=== PATIENT | male | born 1955 | race Caucasian/White ===

== ENCOUNTER → 2017-05-25 | Outpatient (CLI) | payer OTHER ==
[~2017-05-25] VITALS: Ht 190.5 cm; Wt 102.1 kg
[~2017-05-25] MED LIST: ALEVE220 MG PO
--- NOTE | ~2017-05-25 | HPC ---
[facility] [address] [place] [address] PAIN MANAGEMENT CONSULTATION Name: MELONYJOHN Nayla [facility] [id number] Admission: 05/25/17 Attend Phys: Michael Saldivar DO Discharge: Date of : 57 Report #: [id number] THIS REPORT FOR: //name// CC: LEOBARDO physician/PCP Michael Saldivar DATE OF SERVICE: 05/25/2017 CHIEF COMPLAINT: Neck pain, left upper extremity pain and paresthesias. HISTORY OF PRESENT ILLNESS: As you know, the patient is a very pleasant 61-year-old male who has been referred to our service for evaluation for cervical radiculopathy. The patient indicates his pain began in 2012, initially as axial cervical spine pain due to some facet changes in the lower cervical region. The patient has been treated conservatively since that time. He has had a history of periodic neck injuries over his lifetime, but no specific injury that led to symptom development. He indicates his pain has been exacerbated by increasing activity of late. He denies specific injury or trauma that may have led to the numbness and tingling radiating from the left neck into the left upper extremity all the way down to the thumb, first and second digits on the left side. The patient indicates pain at a level 7/10, daily average at 7/10, worst pain has been is 9/10. He describes the pain as constant, burning, shooting, sharp and stabbing. He indicates pain is exacerbated with activities and moving his neck; improves with ice and cold compresses. He has been referred to our service to discuss treatment options for what appears to be cervical radiculopathy involving the C6 dermatome. PAST MEDICAL HISTORY: None. PAST SURGICAL HISTORY: Knee surgery. SOCIAL HISTORY: The patient denies tobacco, IV or illicit drug use. Admits to approximately 4 alcoholic beverages per week. He is self-employed . He is working, not receiving workmen's compensation nor is he trying to obtain disability benefits. He is unaccompanied at today's visit. He is not in litigation in regards to pain. REVIEW OF SYSTEMS: Positive for headaches, hearing loss or tinnitus, frequent and recurrent intermittent dizzy spells, numbness and tingling sensations involving neck all the way into the left upper extremity and head injuries. All other review of systems negative per 12-point review of systems other than those listed in history of present illness. Pain impact score 46/70 indicating [id number] interference of daily activities [place] [address] PAIN MANAGEMENT CONSULTATION Name: JOHN TY Room #: REG CLI [facility].#: [id number] Admission: 05/25/17 Attend Phys: Michael Saldivar DO Discharge: Date of : 57 Report #: [id number] ALLERGIES: No known drug allergies. CURRENT MEDICATIONS: Naproxen sodium 220 mg 3 times a day. IMAGING: No new imaging available. PHYSICAL EXAMINATION: VITAL SIGNS: Blood pressure 138/97, pulse is 70, respiratory rate 16, unlabored. The patient is 100% on room air, height 6 feet 3 inches tall, weight 225 pounds, BMI calculated at 28.1. GENERAL: Well-developed, well-nourished, well-hydrated 61-year-old male appearing his stated age, placing current pain score at 6/10. HEENT: Normocephalic, atraumatic. Pupils equal, round, reactive to light. Extraocular muscles are intact. Sclerae nonicteric without injection. NEUROLOGIC: Cranial nerves 2 through 12 grossly intact. Speech is fluent. The patient deemed a good historian. LUNGS: Clear. No wheeze, rhonchi or rales. CARDIOVASCULAR: Regular. No appreciable gallop or rub. ABDOMEN: Soft, nontender, nondistended, normal active bowel sounds. EXTREMITIES: Show no clubbing, no cyanosis, no edema. MUSCULOSKELETAL: The patient does have some palpatory tenderness over the paraspinal musculature of cervical spine, left greater than right. Upper extremity strength is equal and symmetrical 5/5. He is intact from C5 through T1 dermatomes to light touch. Deep tendon reflexes, biceps, brachioradialis and triceps equal and symmetrical. Spurlings test positive left, negative right. There is restricted range of motion with cervical rotation to the left when compared to the right. Pain is generated with motion. Lateral flexion is also mildly limited to the left when compared to the right due to pain generation. ASSESSMENT: 1. Cervical radiculopathy. 2. Cervical spondylosis with radicular symptoms. 3. Chronic intractable pain. PLAN: 1. Based on today's physical exam, history the patient has provided, the description the patient uses in regards to pain as well as the location of symptoms and provoking factors, likely source of the patient's pain is a cervical radiculopathy. The dermatomal distribution of the cervical radicular pain appears to be on the C6 dermatome involving the upper extremity with radiation to the thumb, first digit and medial portion of the second digit on the left hand. The patient and I discussed treatment options for cervical radiculopathy. These would include the following treatment options. We have discussed physical therapy, stretching exercises and traction techniques. These have been trialled in the past and the patient indicates the physical therapy trial, not only traction techniques, but dry needling techniques and the use of [facility] [address] [place] [address] PAIN MANAGEMENT CONSULTATION Name: JOHN TY Nayla Room #: REG [facility].#: [id number] Admission: 05/25/17 Attend Phys: Michael Saldivar DO Discharge: Date of : 56 Report #: [id number] PENS (percutaneous electrical needle stimulation), all of which cause no improvement in pain except for transiently. We discussed medication management with a neuropathic pain medication in the form of Neurontin or Lyrica, amitriptyline or nortriptyline. We discussed cervical epidural injections under fluoroscopic guidance for which the patient was referred to our service and surgical options. After reviewing risks and benefits of all the proposed treatment options, the patient chose to begin with cervical epidural injection as he has noted failure of more conservative treatment such as physical therapy, traction techniques and PENS unit treatment. The patient was advised that third [employer] party payer restrictions require the authorization be obtained before we could have the patient undergo a cervical epidural injection. Authorization should take anywhere from 4-7 working days. We will begin the process immediately and contact the patient once this is completed. Once we have received the authorization, we will have the patient return to undergo the first in a series of cervical epidural injections. 2. I have provided the patient with samples of Lyrica today 50 mg dose, he will begin 1 tab p.o. at bedtime about an hour before bedtime tonight, he will continue for 3 nights, then escalate to 2 tabs one hour before bedtime or a total of 100 mg. The patient was advised if he is experiencing side effects of this medication including somnolence, decreased mental acuity, disorientation, confusion, discontinue the use of medication. 3. We will see the patient back in followup visit once we have achieved authorization for the patient to undergo epidural injection under fluoroscopic guidance. 4. We wish to thank the referring team for the opportunity to see this patient in consultation. We will keep you apprised of his response to treatment as we address his cervical radicular symptoms. Again, we wish to thank you for the opportunity to see this patient in consultation. <ELECTRONICALLY SIGNED> By: Michael Saldivar DO 05/27/17 [id number] Michael Saldivar DO /nt
[2017-05-25 10:08] VITALS: BP 138/97
== END | disposition home or self-care (01) ==
LOC: PAIN 09:33
DX: M54.12 Radiculopathy, cervical region (principal); M47.812 Spondylosis without myelopathy or radiculopathy, cervical region; G89.29 Other chronic pain

== ENCOUNTER → 2017-08-10 | Outpatient (CLI) | payer OTHER ==
[~2017-08-10] VITALS: Ht 160 cm; Wt 103.4 kg
[~2017-08-10] MED LIST changes: +TRAMADOL 50 MG50 MG PO
--- NOTE | ~2017-08-10 | HPC ---
[facility] [place] [address] [address] PAIN MANAGEMENT CONSULTATION Name: JOHN TY Room #: REG [facility] [id number] Admission: 08/10/17 Attend Phys: Michael Saldivar DO Discharge: Date of : 57 Report #: [id number] THIS REPORT FOR: //name// CC: LEOBARDO physician/PCP Michael Saldivar DATE OF SERVICE: 08/10/2017 DATE OF SERVICE: 08/10/2017 CHIEF COMPLAINT: Neck pain, left upper extremity pain and paresthesias. HISTORY OF PRESENT ILLNESS: As you know, the patient is a 61-year-old male, who was referred to our service for evaluation for cervical radiculopathy. The patient indicates pain began 2012, initiated with axial cervical spine pain, but then progress towards the left upper extremity with paresthesias. He was seen in our clinic per the request of his primary care physician on 05/25/2017, diagnosed with cervical radiculopathy, cervical spondylosis with radicular symptoms leading to chronic intractable pain. At that visit, we discussed multiple treatment options, requested possible cervical epidural injection and started the patient on Lyrica. He has been lost followup visit, but returns today requesting possible changes in medication therapy. He is noting side effects with the Lyrica and wishes possible changes in this therapy. He is also requesting possible addition of a pain medication. He indicates that he is receiving strange dreams, extreme fatigue during the day with the Lyrica though his pain is well controlled. He returns to make adjustments in therapy if at all possible. ALLERGIES: No known drug allergies. CURRENT MEDICATIONS: Naproxen sodium 220 mg 3 times a day, Lyrica 150 mg at night. SOCIAL HISTORY: The patient denies tobacco, IV or illicit drug use. Admits to approximately 4 alcoholic beverages per week. Self employed, unaccompanied today. IMAGING: No new imaging available. PHYSICAL EXAMINATION: VITAL SIGNS: Blood pressure 136/80, pulse 70, respiratory rate 16, unlabored, the patient 99% on room air, height 5 feet 3 inches tall, weight 228 pounds, BMI calculated ____. GENERAL: Well developed, well nourished, well-hydrated 61-year-old male appearing his stated age, placing current pain score at 5/10. HEENT: Normocephalic, atraumatic. Pupils equal, round, [place] [address] PAIN MANAGEMENT CONSULTATION Name: JOHN TY Room #: REG CLI [facility]#: [id number] Admission: 08/10/17 Attend Phys: Michael Saldivar DO Discharge: Date of : 57 Report #: [id number] EXTREMITIES: Show no clubbing, no cyanosis, no edema. MUSCULOSKELETAL: Upper extremity strength equal and symmetrical 5/5, intact to light touch from C5-T1 dermatomes. Deep tendinous reflexes equal and symmetrical biceps, brachialis and triceps. Spurling's positive left. ASSESSMENT: 1. Cervical radiculopathy. 2. Cervical spondylosis with radicular symptoms. 3. Chronic intractable pain. PLAN: 1. The patient returns today in followup visit indicating good efficacy with Lyrica, unfortunately he is experiencing strange dreams and extreme fatigue during the daytime hours despite the fact that is controlling his pain well. He has requested possible change in medication therapy in hopes of improving pain. We suggest the possibility of trialing Gralise in sample form. He will start with 1 tab at night. Continue the titration as directed until he reaches an efficacious level. He is to watch for side effects such as somnolence, decreased mental acuity, disorientation and confusion while taking the medication. If he notes any side effects, contact our clinic. We will await the results of the trial of Gralise to determine the level of medication necessary. If he is able to tolerate the medication and is noting good efficacy, he will contact our clinic, we will provide a full prescription of this medication to his local pharmacy for continued therapy for neuropathic pain secondary to cervical radiculopathy. 2. The patient was provided a prescription of tramadol 50 mg dose 1 tab p.o. every 6 hours p.r.n. for pain. I have given the patient #90 tablets, advised the patient only to take the medication as directed, not to take the medication prophylactically. 3. We will see the patient back in followup visit in 30 days. We will just determine at that time if we need to make any other changes in therapy. By: [id number] Michael Saldivar DO /nt
[2017-08-10 09:27] VITALS: BP 136/80
== END | disposition home or self-care (01) ==
LOC: PAIN 06:57
DX: M47.22 Other spondylosis with radiculopathy, cervical region (principal); G89.29 Other chronic pain

== ENCOUNTER → 2017-11-15 | Outpatient (CLI) | payer OTHER ==
[~2017-11-15] VITALS: Ht 193 cm; Wt 104.7 kg
[~2017-11-15] MED LIST changes: +GRALISE600 MG PO; +NAPROSYN500 MG PO; +VIAGRA100 MG PO
--- NOTE | ~2017-11-15 | HPC ---
[facility] [address] [address] PAIN MANAGEMENT CONSULTATION Name: JOHN TY Room #: REG [facility] Lizett.#: [id number] Admission: 11/15/17 Attend Phys: Michael Saldivar DO Discharge: Date of : 57 Report #: [id number] THIS REPORT FOR: //name// CC: LEOBARDO physician/PCP Michael Saldivar DATE OF SERVICE: 11/15/2017 CHIEF COMPLAINT: Neck pain, left upper extremity pain with paresthesias. HISTORY OF PRESENT ILLNESS: As you know, the patient is a 62-year-old male who was referred to our service by his primary care physician for evaluation of his cervical radiculopathy. The patient was seen in consultation on 05/25/2017, diagnosed with cervical radiculopathy, cervical spondylosis with radicular symptoms leading to chronic intractable pain. He was then seen in followup visit on 08/10/2017 where we initiated medical therapy in hopes of improving pain. He has now completed physical therapy. He was sent for physical therapy and did nearly 2 months of PT. Despite the physical therapy, his pain continues. He does indicate some improvement in the numbness, burning, tingling and stabbing sensation he is experiencing in the left upper extremity. He is placing pain score 4-5/10, states that looking down cooking and using his left upper extremity exacerbate symptoms. He returns today in followup visit to discuss changes in medical therapy and to discuss further imaging studies. ALLERGIES: No known drug allergies. CURRENT MEDICATIONS: Naproxen 220 mg 3 tabs 3 times a day, Lyrica 150 mg at night. SOCIAL HISTORY: The patient denies tobacco, IV or illicit drug use. Admits to approximately 4 alcoholic beverages per week. He is self-employed, unaccompanied. IMAGING: No new imaging available. PHYSICAL EXAMINATION: VITAL SIGNS: Blood pressure 140/75, pulse 70, respiratory rate 14 and unlabored, the patient is 97% on room air. Height 6 feet 4 inches tall, weight 230.8 pounds, BMI calculated at 28.1. GENERAL: Well-developed, well-nourished, well-hydrated 62-year-old male who appears his stated age, placing current pain score 4-5/10. HEENT: Normocephalic, atraumatic. Pupils are equal, round, and reactive to light. Extraocular muscles are intact. Sclerae are nonicteric, without injection. EXTREMITIES: Show no clubbing, no cyanosis, no edema. MUSCULOSKELETAL: Upper extremity strength appears equal and symmetrical at 5/5. [place] [address] PAIN MANAGEMENT CONSULTATION Name: JOHN TY Room #: REG [facility]..#: [id number] Admission: 11/15/17 Attend Phys: Michael Saldivar DO Discharge: Date of : 57 Report #: [id number] He remains intact to light touch from C5 to T1 dermatomes. Deep tendon reflexes are symmetrical at biceps, brachioradialis and triceps. Spurling test is positive on left and negative on right. There is some palpatory tenderness over the paraspinal musculature of cervical spine, no trigger points. ASSESSMENT: 1. Cervical radiculopathy. 2. Cervical spondylosis with radiculopathy. 3. Chronic intractable pain. PLAN: 1. The patient returns today in followup visit indicating that he received some benefit with physical therapy. He has been doing physical therapy for nearly 2 months and he has been very consistent with the PT requests. He states that he has progressed some, but pain remains at a level about 4-5/10. He is very concerned about changes in his cervical region and has requested that we provide imaging studies so that we can further determine whether or not the patient would need surgical intervention or whether or not more conservative treatment such as cervical epidural injections may be beneficial. The patient was advised at one time that he was a surgical candidate, but chose not to undergo surgery at that time. He has been "just putting up with it." He returns today with pain improvement from his physical therapy and his conservative medical management, but is considering the potential surgical options as he has not seen significant improvement in symptoms with medications or physical therapy. 2. The patient will be sent for MRI of cervical spine without contrast, differential diagnosis of cervical radiculopathy. The patient has requested the imaging to be performed at one of the facilities that is covered through his insurance. I have provided him a prescription to undergo the procedure. I recommend the patient undergo the procedure as quickly as possible. We will review the findings once they are available and have the patient return to discuss options for treatment based on the pathology noted. 3. The patient has been provided a prescription for Gralise. He did have some issues with Lyrica. This caused depression and vivid dreams that he could not tolerate. We subsequently discontinued the medication as symptoms improved. We started the patient on immediate release gabapentin for which he noted good improvement in symptoms, but side effects of somnolence, decreased mental acuity, disorientation, confusion that he could not resolve. We then started the patient on Gralise as a trial. He did very well with the medication reaching 1800 mg at night. No side effects, good efficacy and he wishes to continue therapy. We have provided the patient with a prescription of Gralise 600 mg tablets 3 tabs p.o. at bedtime, #90 with refill. [facility] [place] [address] PAIN MANAGEMENT CONSULTATION Name: JOHN TY Room #: REG [facility]#: [id number] Admission: 11/15/17 Attend Phys: Michael Saldivar DO Discharge: Date of : 57 Report #: [id number] 4. We will see the patient back in followup visit once he has completed his MRI. We will review the findings and discuss more definitive treatment options. <ELECTRONICALLY SIGNED> By: Michael Saldivar DO 11/22/17 [id number] Michael Saldivar DO /nt
[2017-11-15 09:41] VITALS: BP 140/75
== END ==
LOC: PAIN 07:12
DX: M54.12 Radiculopathy, cervical region (principal); M47.892 Other spondylosis, cervical region; G89.29 Other chronic pain; Z72.89 Other problems related to lifestyle

== ENCOUNTER → 2018-02-08 | Outpatient (CLI) | payer OTHER ==
[~2018-02-08] VITALS: Ht 193 cm; Wt 102.5 kg
[~2018-02-08] MED LIST changes: -VIAGRA100 MG PO
--- NOTE | ~2018-02-08 | HPC ---
[facility] [place] [address] PAIN MANAGEMENT CONSULTATION Name: MELONYJOHN Nayla Room #: REG [facility].#: [id number] Admission: 02/08/18 Attend Phys: Michael Saldivar DO Discharge: Date of : 56 Report #: [id number] THIS REPORT FOR: //name// CC: LEOBARDO physician/PCP Michael Saldivar DATE OF SERVICE: 02/08/2018 CHIEF COMPLAINT: Neck pain, left upper extremity pain and paresthesias. HISTORY OF PRESENT ILLNESS: As you know, the patient is a 62-year-old male who returns today in followup visit, review MRI imaging. The patient indicates pain today at level of 5/10, states pain begins in the neck, radiates to the left shoulder and down the left arm all the way into the hand. He gets intermittent right-sided pain. He describes the pain as numbness, burning, tingling and sharp, exacerbated with walking, looking down, cooking, turning to his right side, repetitive motion. He indicates medications, cold compresses, bracing around the neck improves pain. He is placing pain score no greater than 5/10 today. He returns to discuss imaging and potential treatment options. ALLERGIES: No known drug allergies. CURRENT MEDICATIONS: Gabapentin 600 mg 3 tabs p.o. at bedtime, naproxen 220 mg once a day. SOCIAL HISTORY: The patient denies tobacco, IV or illicit drug use. Admits to 4 alcoholic beverages per week. He is self-employed. He is accompanied by his present in room today. IMAGING: MRI cervical spine obtained 01/25/2018 shows C2-C3 with facet and uncovertebral hypertrophy noted more on the right, central canal measuring 13 mm. C3-C4 shows disk narrowing, osteophyte complex, canal is measuring 11 mm. There is facet and uncovertebral hypertrophy, bilateral foraminal stenosis seen. C4-C5, central canal is reduced to 10 mm. There is more prominent right than left facet and uncovertebral hypertrophy, foraminal stenosis is also more on the right at this level. C5-C6 shows osteophyte and degenerative changes, diffuse annular disk bulge, central canal measures 11 mm. Facet and uncovertebral hypertrophy noted, mild bilateral neural foraminal stenosis. C6-C7, central canal measures 10 mm. There is disk space degeneration and endplate degeneration, more prominent on the right than the left. There is uncovertebral and facet hypertrophy, more prominent on the right than the left; bilateral foraminal stenosis, prominent on the right. C7-T1, no evidence of focal disk protrusion, sign of central canal and neural foraminal stenosis. PHYSICAL EXAMINATION: VITAL SIGNS: Blood pressure 108/73, pulse 70, respiratory rate 14, unlabored. [facility] [address] [place] [address] PAIN MANAGEMENT CONSULTATION Name: JOHN TY Room #: REG [facility].#: [id number] Admission: 02/08/18 Attend Phys: Michael Saldivar DO Discharge: Date of : 56 Report #: [id number] The patient is 100% on room air. Height 6 feet 4 inches tall, weight 226 pounds, BMI calculated 27.5. GENERAL: Well-developed, well-nourished, well-hydrated, 62-year-old male. He appears stated age. He is placing pain score today 5/10. HEENT: Normocephalic, atraumatic. Pupils equal, round, reactive to light. Extraocular muscles are intact. Sclerae nonicteric, without injection. EXTREMITIES: Show no clubbing, no cyanosis, no edema. MUSCULOSKELETAL: Upper extremity strength equal and symmetrical 5/5, intact to light touch from C5-T1 dermatomes. Deep tendon reflexes remain symmetrical at biceps, brachioradialis and triceps. Spurling's test positive on the left. ASSESSMENT: 1. Cervical radiculopathy. 2. Cervical spondylosis with radicular symptoms. 3. Mildly displaced cervical radicular disk. 4. Mild cervical canal stenosis. 5. Chronic intractable pain. PLAN: 1. The patient has returned today in followup visit where we have taken 21 minutes of time to review the patient's MRI and correlating to current distribution of pain. It does appear the patient is suffering from continued left radiculopathy with radiation from the neck all the way into the hand, though the findings on MRI are very benign. It does not require any surgical option in this patient's case and I am pleased that the findings on the MRI are such that we do not have to recommend surgical options. We discussed with the patient treatment options that would be beneficial for the findings on the imaging study and how they correlate to the patient's ongoing pain issues. The following was discussed. We discussed physical therapy, stretching exercises and traction techniques. This would be extremely beneficial. We recommend the patient initiate this therapy as quickly as possible. We also recommend continuation of neuropathic pain medications as he is noting good benefit with the Gralise at 1800 mg at night. Would recommend continuing this therapy. We also discussed interventional treatment such as cervical epidural injections if warranted. I am pleased to indicate today surgical options in this patient's case are not necessary. After this long discussion, the patient chose to continue with conservative treatment. 2. The patient was provided prescription of Gralise 600 mg dose 3 tabs p.o. at bedtime, I have given the patient #90 tablets, 2 refills, 3 months' worth of medication. 3. The patient was provided refill of prescription on his naproxen 500 mg dose 1 tab p.o. t.i.d., I have given the patient #90, two refills. 4. The patient will begin physical therapy with traction techniques. We have given the patient information about physical therapy options in his area, he will begin this as quickly as possible. 5. We will see the patient back in followup visit in 3 months. I am pleased to [address] [address] PAIN MANAGEMENT CONSULTATION Name: JOHN TY [id number] Admission: 02/08/18 Attend Phys: Michael Saldivar DO Discharge: Date of : 56 Report #: [id number] indicate to the patient today surgical options will not be necessary in this case. I am hopeful that the conservative treatment provided will be beneficial. <ELECTRONICALLY SIGNED> By: Michael Saldivar DO 02/14/18 0935 [id number] Michael Saldivar DO /nt
[2018-02-08 09:40] VITALS: BP 108/73
== END ==
LOC: PAIN 06:49
DX: M54.12 Radiculopathy, cervical region (principal); M47.892 Other spondylosis, cervical region; M48.02 Spinal stenosis, cervical region; G89.29 Other chronic pain

== ENCOUNTER → 2018-06-06 | Outpatient (CLI) | payer OTHER ==
--- NOTE | ~2018-06-06 | HPC ---
[facility] [address] [place] [address] PAIN MANAGEMENT CONSULTATION Name: JOHN TY Room #: REG [facility].#: [id number] Admission: 06/06/18 Attend Phys: Michael Saldivar DO Discharge: Date of : 56 Report #: [id number] THIS REPORT FOR: //name// CC: LEOBARDO physician/PCP Michael Saldivar DATE OF SERVICE: 06/06/2018 CHIEF COMPLAINT: Neck pain, left upper extremity pain and paresthesias. HISTORY OF PRESENT ILLNESS: As you know, the patient is a 62-year-old male who returns today in followup visit with a pain intensity anywhere from 0-5/10 depending on activity. The patient states his pain begins in his neck, radiates down his left arm all the way to his hand. He also has intermittent right shoulder pain that is only present when his left symptoms are most intense. He indicates his pain is sharp, knife-like, burning, numbness and tingling in sensation and exacerbated with positions of his neck and physical therapy. Medications tend to improve pain. He has been advised to return to our clinic to discuss the possibility of other treatment options. He is taking Gralise 1800 mg at night. He is reporting some side effects of somnolence, decrease in mental acuity, disorientation and confusion that it was noted with an escalation from the 7990-2375 mg dosing. He does note improvement in symptoms with the medication, but the side effects have become problematic. He returns to discuss other treatment options. ALLERGIES: No known drug allergies. CURRENT MEDICATIONS: Gralise 1800 mg p.o. at bedtime and naproxen 220 mg 3 times a day. SOCIAL HISTORY: The patient denies tobacco or IV or illicit drug use. Admits to at least 4 alcohol beverages per week. He is self-employed. He is accompanied by his , present in room today. IMAGING DATA: No new imaging available. PHYSICAL EXAMINATION: VITAL SIGNS: Blood pressure 110/82, pulse is 75 and respiratory rate 16 and unlabored. The patient is 100% on room air, height 6 feet 4 inches tall, weight 226 pounds and BMI calculated 27.5. GENERAL: Well-developed, well-nourished and well-hydrated 62-year-old male. He appears stated age, placing current pain score at 0-5/10 depending on activity. HEENT: Normocephalic and atraumatic. Pupils equal, round and reactive to light. EXTREMITIES: Show no clubbing, no cyanosis and no edema. MUSCULOSKELETAL: Upper extremity strength is symmetrical again today 03/04, [place] [address] PAIN MANAGEMENT CONSULTATION Name: JOHN TY Room #: REG [facility]..#: [id number] Admission: 06/06/18 Attend Phys: Michael Saldivar DO Discharge: Date of : 56 Report #: [id number] muscle bulk and tone equal and symmetrical in the upper extremities when comparing left upper extremity with right. Deep tendon reflexes are symmetrical at biceps, brachioradialis and triceps 2+/4. Spurling's test positive left, negative right. Cervical provocation testing including extension and lateral flexion to the left causes intensification of pain. ASSESSMENT: 1. Cervical radiculopathy. 2. Cervical spondylosis with radicular symptoms. 3. Mildly displaced cervical intervertebral disk with radiculopathy. 4. Mild cervical spinal stenosis. 5. Chronic intractable pain. PLAN: 1. The patient returns today in followup visit reporting pain anywhere from 0-5/10. He is considered his options and wishes to move forward with a possible cervical epidural injection. The patient was advised that third green party payer restrictions require the authorization be obtained. We will begin the authorization process immediately. Given the patient's attempts at conservative medical therapy, his continued physical therapy for which he is paying out of pocket to continue as well as his side effects of medications, I do recommend an epidural injection to determine if his symptoms might be improved. We will begin the authorization process immediately. We will contact the patient once this authorization has been completed and have him return to undergo cervical epidural injection under fluoroscopic guidance at the C7-T1 level to address the findings from his MRI. 2. We will continue the patient on his Gralise. We have advised the patient to reduce by 300 mg at night for the next week. We will then discuss the efficacy of the medication at that point and determine if he is receiving less side effects but continuing analgesic benefit. 3. The patient was provided description and naproxen 500 mg dose 1 tab p.o. t.i.d. I have given the patient #90 tablets, 2 refills. He is to take the naproxen in the morning around 2:00 in the afternoon and again in the evening hours. He is to watch for dyspepsia, worsening blood pressure and lower extremity edema. At present, the patient denies any side effects. 4. We will see the patient back in followup visit once we have achieved authorization for the patient to undergo cervical epidural injection under fluoroscopic guidance to address cervical radicular symptoms. <ELECTRONICALLY SIGNED> By: Michael Saldivar DO 06/07/18 1625 1603 2131 Michael Saldivar, /nt
== END ==
LOC: PAIN 11:46
DX: M47.812 Spondylosis without myelopathy or radiculopathy, cervical region (principal); M48.02 Spinal stenosis, cervical region; M50.121 Cervical disc disorder at C4-C5 level with radiculopathy; G89.4 Chronic pain syndrome; Z79.899 Other long term (current) drug therapy

== ENCOUNTER → 2018-06-13 | Outpatient (CLI) | payer OTHER ==
[~2018-06-13] VITALS: Ht 193 cm; Wt 102.5 kg
--- NOTE | ~2018-06-13 | HPC ---
[facility] [address] [address] PAIN MANAGEMENT CONSULTATION Name: MELONYJOHN Nayla Room #: REG [facility].#: [id number] Admission: 06/13/18 Attend Phys: Michael Saldivar DO Discharge: Date of : 56 Report #: [id number] THIS REPORT FOR: //name// CC: LEOBARDO physician/PCP Michael Saldivar DATE OF SERVICE: 06/13/2018 CHIEF COMPLAINT: Neck pain, left upper extremity pain and paresthesias. HISTORY OF PRESENT ILLNESS: As you know, the patient is a 62-year-old male who returns today in followup visit having received precertification to undergo an epidural injection under fluoroscopic guidance to address cervical radicular symptoms. The patient is placing his current pain score at around 5/10. He states that certain activities exacerbate symptoms, medications tend to improve pain. He returns to undergo the first in a series of cervical epidural injections to address cervical radicular pain. ALLERGIES: No known drug allergies. CURRENT MEDICATIONS: Gralise 1800 mg p.o. at bedtime, naproxen 220 mg 3 times a day. SOCIAL HISTORY: The patient denies tobacco, IV or illicit drug use. Admits to at least 4 alcohol beverages per week. He is self employed. He is accompanied by his who is present in room today. IMAGING: No new imaging available. PHYSICAL EXAMINATION: VITAL SIGNS: Blood pressure 121/98, pulse is 65, respiratory rate 16, unlabored. The patient is 98% on room air, height 6 feet 4 inches tall, weight 226 pounds, BMI calculated 27.5. GENERAL: Well-developed, well-nourished, well-hydrated 62-year-old male appearing his stated age. He is placing pain score at 5/10. HEENT: Normocephalic, atraumatic. Pupils are equal, round, reactive to light. Extraocular muscles are intact. EXTREMITIES: Show no clubbing, no cyanosis, no edema. MUSCULOSKELETAL: Upper extremity strength is symmetrical 5/5, intact to light touch from C5 through T1 dermatomes. Deep tendon reflexes are symmetrical at biceps, brachioradialis and triceps. Spurling's test positive left, negative right. ASSESSMENT: 1. Symptomatic lumbar radiculopathy. 2. Cervical spondylosis with radiculopathy. [address] [address] PAIN MANAGEMENT CONSULTATION Name: MELONYJOHN Room #: REG [facility].#: [id number] Admission: 06/13/18 Attend Phys: Michael Saldivar DO Discharge: Date of : 57 Report #: [id number] 3. Mildly displaced cervical intervertebral disk with radiculopathy. 4. Mild cervical spinal stenosis. 5. Chronic intractable pain. PLAN: 1. The patient returns today in followup visit having received precertification to undergo a cervical epidural injection under fluoroscopic guidance. The patient and I discussed the risks and the benefits of the procedure. These risks include but are not necessarily limited to bleeding, bruising, infection, worsening pain, no relief of pain, also risk of temporary or permanent muscle weakness, temporary or permanent nerve damage, possible paralysis and . The patient states understood and wished to proceed. 2. No medication changes made at today's visit. The patient will continue current medical therapy as previously prescribed. 3. We will see the patient back in followup visit in 31 days. At that time, review the efficacy of today's epidural injection and determine if next in the series of cervical epidural injections would be warranted. DESCRIPTION OF PROCEDURE: Cervical epidural steroid injection under fluoroscopic guidance. This is the first procedure of the first series that the patient is undergoing. After obtaining written consent, the patient was taken back to the fluoroscopy suite and placed in a prone position with several pillows under chest and forehead to decrease cervical lordosis. The skin overlying the cervical area was prepped and draped in an aseptic fashion. The cervical vertebral interspace was identified by AP fluoroscopy. The skin and subcutaneous tissue overlying the target site of injection was anesthetized using 3 mL of 1% lidocaine. A 20-gauge, 3-1/2 inch Tuohy needle was advanced under fluoroscopic guidance toward the epidural space using a midline approach. The epidural space was identified using a loss of resistance to air technique. After negative aspiration for heme or cerebrospinal fluid, a total of 1 mL of Omnipaque was injected. A cervical epidurogram was confirmed using AP and oblique fluoroscopy. After negative aspiration for heme or cerebrospinal fluid, 5 mL of a solution containing 2 mL 40 mg per mL, 80 mg total triamcinolone, 3 mL lidocaine 1% was injected in increments. Contrast spread was noted from posterior epidural space. The needle was then retracted approximately [facility] and the needle track was flushed with 1 mL of lidocaine. There were no apparent new sensory deficits in the upper extremities present following the procedure. A sterile bandage was placed over the injection site. The heart rate, pulse oximetry and blood pressure were continuously monitored after the procedure. There were no apparent complications. The patient tolerated the procedure well and was carefully escorted in the recovery room in [address] [address] PAIN MANAGEMENT CONSULTATION Name: JOHN YT Room #: REG [facility] [id number] Admission: 06/13/18 Attend Phys: Michael Saldivar DO Discharge: Date of : 57 Report #: [id number] stable condition. After meeting discharge criteria, the patient was discharged home. <ELECTRONICALLY SIGNED> By: Michael Saldivar DO 06/14/18 0838 1559 0038 Michael Saldivar DO /nt
[2018-06-13 13:07] VITALS: BP 121/98
== END | disposition home or self-care (01) ==
LOC: PAIN 07:06
DX: M50.10 Cervical disc disorder with radiculopathy, unspecified cervical region (principal); M47.22 Other spondylosis with radiculopathy, cervical region; M48.02 Spinal stenosis, cervical region; G89.29 Other chronic pain

== ENCOUNTER → 2018-10-25 | Outpatient (CLI) | payer OTHER ==
[~2018-10-25] VITALS: Ht 193 cm; Wt 106.1 kg
[~2018-10-25] MED LIST changes: +VIAGRA100 MG PO
--- NOTE | ~2018-10-25 | HPC ---
[facility] [address] [place] [address] PAIN MANAGEMENT CONSULTATION Name: SENIAHOLLYJOHN Nayla [facility] [id number] Admission: 10/25/18 Attend Phys: Michael Saldivar DO Discharge: Date of : 57 Report #: [id number] THIS REPORT FOR: //name// CC: Dr. ANEESH BOOTH physician/PCP Michael Saldivar DATE OF SERVICE: 10/25/2018 REFERRING PHYSICIAN: PCP. HISTORY OF PRESENT ILLNESS: As you know, the patient is a very pleasant 63-year-old male who returns today in followup visit with continued neck pain, left upper extremity pain with paresthesias. The patient reports good efficacy with previous cervical epidural injection reporting improvement lasting for months. He states in combination with his cervical epidural injections, he was taking Gralise with good effect. He began to reduce his use of Gralise and this led to increasing pain. He reinitiated his Gralise but did not see improvement in symptoms. He returns today in followup visit requesting to undergo a cervical epidural injection to address pain levels of 7/10, states pain is burning, numbness, tingling and soreness in sensation, exacerbated with certain activities, improves with medications and epidurals. ALLERGIES: No known drug allergies. CURRENT MEDICATIONS: Gralise 1200 mg once a day, naproxen 220 mg 6 times a day, Viagra 100 mg p.r.n. SOCIAL HISTORY: The patient denies tobacco, IV or illicit drug use. Admits to approximately 4 alcoholic beverages per week. He is employed. He is accompanied by his who is present in room today. IMAGING: No new imaging available. PHYSICAL EXAMINATION: VITAL SIGNS: Blood pressure 143/86, pulse 62, respiratory rate 16 and unlabored, the patient 99% on room air, height 6 feet 4 inches tall, weight 234 pounds, BMI calculated 28.5. GENERAL: Well-developed, well-nourished, well-hydrated 61-year-old male appearing stated age, placing current pain score at approximately 7/10. HEENT: Normocephalic, atraumatic. Pupils equal, round, reactive to light. Extraocular muscles are intact. Sclerae nonicteric without injection. NEUROLOGIC: Cranial nerves 2-12 grossly intact. Speech is fluent. EXTREMITIES: Show no clubbing, no cyanosis, no edema. MUSCULOSKELETAL: Upper extremity strength is symmetrical 5/5, muscle bulk and tone equal and symmetrical. Spurlings test is positive left, negative right. [facility] [address] [address] PAIN MANAGEMENT CONSULTATION Name: JOHN TY Room #: REG [facility]#: [id number] Admission: 10/25/18 Attend Phys: Michael Saldivar DO Discharge: Date of : 57 Report #: [id number] Active and passive range of motion of the right arm causes intensification of pain, no shoulder tenderness. ASSESSMENT: 1. Cervical radiculopathy. 2. Cervical spondylosis with radiculopathy. 3. Displacement of a cervical intervertebral disk with radiculopathy. 4. Mild cervical spinal stenosis. 5. Chronic intractable pain. PLAN: 1. The patient returns today in followup visit to undergo a cervical epidural injection under fluoroscopic guidance. The patient denies any specific injury or trauma that may have caused recurrence of symptoms. The patient did very well with previous cervical epidural injection on 06/13/2018, returning on 07/12/2018 reporting significant improvement in symptoms of greater than 65%. This in conjunction with Gralise has combined to provide good analgesic benefit until just recently. He returns today in followup visit to undergo cervical epidural injection under fluoroscopic guidance to address recurrence of cervical radiculopathy. We have been able to obtain authorization from his third green party payer today as part of their requirements and he is prepared to proceed. The patient was advised risks and benefits of a cervical epidural injection. These risks include but are not necessarily limited to bleeding, bruising, infection, worsening pain, no relief of pain, also risk of temporary or permanent muscle weakness, temporary or permanent nerve damage, possible paralysis, post-dural puncture headache and . The patient states understood and wished to proceed. 2. Recommend the patient restart his Gralise at 600 mg 2-3 tabs p.o. at bedtime. I have given the patient #90 tablets, 2 refills. The patient was advised to re-escalate his Gralise as he was noticing good efficacy with the medication. He was given a prescription with refills today for 3 months' worth of therapy. 3. The patient will continue on naproxen, but reducing dose to 500 mg 3 times a day. I have given the patient #90 tablets, 2 refills. The patient was advised to watch for any dyspepsia, worsening of blood pressure, lower extremity edema with its use. 4. We will see the patient back in followup visit on an as needed basis for possible next in the series of cervical epidural injections. Otherwise, we will see him back in 3 months for medication management. PROCEDURE NOTE: DESCRIPTION OF PROCEDURE: Cervical epidural steroid injection. This is the second procedure of the first series that the patient is undergoing. [address] [address] PAIN MANAGEMENT CONSULTATION Name: JOHN TY Room #: REG [facility]#: [id number] Admission: 10/25/18 Attend Phys: Michael Saldivar DO Discharge: Date of : 56 Report #: [id number] After obtaining written consent, the patient was taken back to the fluoroscopy suite and placed in a prone position with separate pillows under chest and forehead to decrease cervical lordosis. The skin overlying the cervical area was prepped and draped in an aseptic fashion. The C7-T1 vertebral interspace was identified by AP fluoroscopy. The skin and subcutaneous tissue overlying the target site of injection was anesthetized using 3 mL of 1% lidocaine. A 20 gauge, 3-1/2 inch Tuohy needle was advanced under fluoroscopic guidance toward the epidural space using a midline approach. The epidural space was identified using a loss of resistance to air technique. After negative aspiration for heme or cerebrospinal fluid, a total of 1 mL of Omnipaque was injected. A cervical epidurogram was confirmed using AP and oblique fluoroscopy. After negative aspiration for heme or cerebrospinal fluid, 5 mL of a solution containing 2 mL 40 mg per mL, 80 mg total triamcinolone, 3 mL of lidocaine 1% was injected in increments. Contrast spread was noted from posterior epidural space. The needle was then retracted approximately nursing home and the needle track was flushed with 1 mL of 1% lidocaine. There were no apparent new sensory deficits in the upper extremities present following the procedure. A sterile bandage was placed over the injection site. The heart rate, pulse oximetry and blood pressure were continuously monitored after the procedure. There were no apparent complications. The patient tolerated the procedure well and was carefully escorted in the recovery room in stable condition. After meeting discharge criteria, the patient was discharged home. By: 1628 0029 Michael Saldivar DO /nt
[2018-10-25 09:11] VITALS: BP 143/86
== END | disposition home or self-care (01) ==
LOC: PAIN 08:15
DX: M47.22 Other spondylosis with radiculopathy, cervical region (principal); M50.10 Cervical disc disorder with radiculopathy, unspecified cervical region; M48.02 Spinal stenosis, cervical region; G89.29 Other chronic pain; Z79.899 Other long term (current) drug therapy

== ENCOUNTER → 2019-01-17 | Outpatient (CLI) | payer OTHER ==
[~2019-01-17] VITALS: Ht 193 cm; Wt 104.3 kg
[~2019-01-17] MED LIST changes: +NABUMETONE 500500 M1 PO
--- NOTE | ~2019-01-17 | HPC ---
[facility] [address] [place] [address] PAIN MANAGEMENT CONSULTATION Name: JOHN TY Nayla [id number] Admission: 01/17/19 ������������������ Attend Phys: Michael Saldivar DO Discharge: ������������������ Date of : 57 Report #: [id number] THIS REPORT FOR: //name// CC: [facility] physician/PCP Michael Saldivar DATE OF SERVICE: 01/17/2019 CHIEF COMPLAINT: Neck pain, bilateral upper extremity pain and paresthesias. HISTORY OF PRESENT ILLNESS: As you know, the patient is a 63-year-old male followed by [facility] for cervical radiculopathy. As you are aware, the patient has done very well with medication management. We have trialled epidural injections with the patient in the past with variable improvement in symptoms. We have adjusted his medications and he appears to be doing well with this therapy. He returns today requesting refill of his medications. He is denying any side effects to their use. He feels that they work well for pain control and wishes to continue this treatment option. He is denying side effects of somnolence, decreased mental acuity, disorientation or confusion with the use of the therapy. He returns today with pain score of 5/10. He denies new injury, new trauma or any changes in medical history since our last visit. ALLERGIES: No known drug allergies. CURRENT MEDICATIONS: Gralise 1800 mg p.o. at bedtime, naproxen 500 mg t.i.d. p.r.n. SOCIAL HISTORY: The patient denies tobacco, IV or illicit drug use. Admits to approximately 4 alcoholic beverages per week. He is employed, he is working, not receiving workmen's compensation, unaccompanied today. IMAGING: No new imaging available. PHYSICAL EXAMINATION: VITAL SIGNS: Blood pressure 137/84, pulse 74, respiratory rate 16 and unlabored. The patient is 100% on room air, height 6 feet 4 inches tall, weight 230 pounds, BMI calculated at 28.0. GENERAL: Well-developed, well-nourished, well-hydrated 63-year-old male appearing his stated age, placing a pain score today 5/10. HEENT: Normocephalic, atraumatic. Pupils are equal, round, and reactive to light. EXTREMITIES: Show no clubbing, no cyanosis, and no edema. MUSCULOSKELETAL: Upper extremity strength is symmetrical at 5/5, muscle bulk and tone equal and symmetrical in comparing left upper extremity to right. Spurling test positive left, negative right. Deep tendon reflexes are symmetrical at biceps, brachialis and triceps. [address] [address] PAIN MANAGEMENT CONSULTATION Name: MELONYJOHN Nayla Room #: REG CL [facility].#: [id number] Admission: 01/17/19 ������������������ Attend Phys: Michael Saldivar DO Discharge: ������������������ Date of : 57 Report #: [id number] ASSESSMENT: 1. Cervical radiculopathy. 2. Cervical spondylosis with radiculopathy. 3. Displacement of cervical intervertebral disk with radiculopathy. 4. Cervical spinal stenosis. 5. Chronic intractable pain. PLAN: 1. The patient returns today in followup visit for continuation of medication therapy. He feels the Gralise at 1800 mg per day is working well for pain control. He is experiencing mild somnolence in the morning hours, lasting for approximately 1-2 hours. He feels the medication benefits far outweighed this minimal side effect and wishes to continue the medication. He has requested refills to be provided today. 2. The patient was provided a prescription of Gralise 600 mg tablets. He is to take 3 tabs p.o. at bedtime, #90, 2 refills, 3 months' worth of medication. 3. The patient will be transitioned from naproxen over to nabumetone. We will make this adjustment in providing better analgesic benefit. I have started the patient on nabumetone 500 mg dose 1 tab p.o. t.i.d., #90, with 2 refills. The patient will watch for dyspepsia, worsening of blood pressure, lower extremity edema with its use. If he notes any side effects, discontinue immediately and call for further instructions. 4. We will see the patient back in followup visit on an as needed basis for possible next in the series of cervical epidural injections. Otherwise, we will see him back in 3 months for medication therapy. ��������������������������������������������� ���������������������������������������� By: ��������������������������������������������� 1430 [id number] Mihcael Saldivar DO /nt
[2019-01-17 09:15] VITALS: BP 137/84
--- NOTE | 2019-01-17 09:54 | NUR ---
Pain Clinic Assessment: 1. History of Osteoarthritis: neck History of Rheumatoid Arthritis: none 2. Height: 6 ft. 4 in. 193.0 cm. Weight: 230.0 lb. oz. 104.328 kg. Patient's BMI: 28.0 3. Vital Signs: BP: 137/84 Pulse: 74 Resp: 16 Temp: 02 Sat: 100 ECG Mon: 4. Pain Intensity: 5 5. Fall Risk: Dizziness: Y Needs help standing or walking: N Fallen in the last 3 months: Y Fall risk comments: having vertigo and seeing pt 6. Patient on Blood Thinner: None 7. History of Hypertension: N 8. Opioid Therapy greater than 6 weeks: N Opiate Contract Signed: 9. Risk Assessment Tool Provided: MODERATE RISK 03/06 10. Functional Assessment Tool: 11. Recreational Drug Use: Never Drug Type: Tobacco Use: Never Smoker Tobacco Type: Amount or Packs/day: How Many Years: Alcohol Use: Yes Frequency: Quant:
== END ==
LOC: PAIN 07:01
DX: M47.22 Other spondylosis with radiculopathy, cervical region (principal); M48.02 Spinal stenosis, cervical region; M50.10 Cervical disc disorder with radiculopathy, unspecified cervical region; G89.4 Chronic pain syndrome

== ENCOUNTER → 2019-05-15 | Outpatient (CLI) | payer OTHER ==
[~2019-05-15] VITALS: Ht 193 cm; Wt 101.2 kg
[2019-05-15 09:46] VITALS: BP 127/73
--- NOTE | 2019-05-15 09:47 | NUR ---
Pain Clinic Assessment: 1. History of Osteoarthritis: neck History of Rheumatoid Arthritis: none 2. Height: 6 ft. 4 in. 193.0 cm. Weight: 223.0 lb. oz. 101.152 kg. Patient's BMI: 27.2 3. Vital Signs: BP: 127/73 Pulse: 72 Resp: 16 Temp: 02 Sat: 98 ECG Mon: 4. Pain Intensity: 3 5. Fall Risk: Dizziness: N Needs help standing or walking: N Fallen in the last 3 months: N Fall risk comments: having vertigo and seeing pt 6. Patient on Blood Thinner: None 7. History of Hypertension: N 8. Opioid Therapy greater than 6 weeks: N Opiate Contract Signed: 9. Risk Assessment Tool Provided: MODERATE RISK 03/06 10. Functional Assessment Tool: 11. Recreational Drug Use: Never Drug Type: Tobacco Use: Never Smoker Tobacco Type: Amount or Packs/day: How Many Years: Alcohol Use: Yes Frequency: Quant:
--- NOTE | 2019-05-15 15:34 | HPC ---
[facility] [address] [place] [address] PAIN MANAGEMENT CONSULTATION Name: JOHN TY [id number] Admission: 05/15/19 ������������������ Attend Phys: Jennifer Maddox Discharge: ������������������ Date of : 57 Report #: [id number] THIS REPORT FOR: //name// CC: Jennifer Maddox [facility] physician/PCP DATE OF SERVICE: 05/15/2019 CHIEF COMPLAINT: Neck pain, bilateral upper extremity pain and paraesthesias. HISTORY OF PRESENT ILLNESS: This is a pleasant 63-year-old gentleman who returns for refill of his medications that he uses to help treat his cervical radiculopathy. He has done quite well with his Gralise 1800 mg before dinner and his nabumetone. He tells me he takes 2-3 tablets of those a day, which is very beneficial in relieving his pain. The patient tells me that his pain score is 3/10 today, mostly in his neck and upper back that does radiate down his bilateral arms. He tells me that his last injection that Dr. Michael Saldivar gave him in September was very beneficial in decreasing his mid back pain. He would like refills of his Gralise that he gets through the [facility]. ALLERGIES: No known drug allergies. CURRENT LIST OF MEDICATIONS: Nabumetone 500 mg 3 times a day and Gralise 600 mg tablets 3 tablets before dinner. PQRS: 1. He has osteoarthritis in his neck. He denies any rheumatoid arthritis. 2. Height is 6 feet 4 inches, weight is 223 and BMI is 27. 3. VITAL SIGNS: Blood pressure 127/73, pulse is 72, respirations 16 and oxygen sat is 98. Pain score is 3/10. 4. Denies dizziness. Does not need help walking or standing. He has not fallen in the last 3 months. 5. The patient is not on any blood thinners or medicines for hypertension. 6. He is not on any opioids. His risk assessment tool is moderate, his functional assessment is 46/70. 7. Recreational drug use, he denies. He is not a smoker and occasionally drinks alcohol. We did check the prescription monitoring system. The patient had recently filled a prescription for some hydrocodone from another physician that we do not provide this patient with narcotics. PHYSICAL EXAMINATION: GENERAL: This is a well-developed, well-nourished, well-hydrated 63-year-old male who appears his stated age, placing his current pain score today at 3/10. [place] [address] PAIN MANAGEMENT CONSULTATION Name: JOHN TY Room #: REG [facility].#: [id number] Admission: 05/15/19 ������������������ Attend Phys: Jennifer Maddox Discharge: ������������������ Date of : 57 Report #: [id number] HEENT: Normocephalic and atraumatic. Pupils equal, round and reactive to light. EXTREMITIES: No clubbing, no cyanosis and no edema. MUSCULOSKELETAL: The patient complains of tenderness in his neck that does radiate up into his occipital area. His upper extremity strength is symmetrical at 5/5. Muscle bulk and tone are equal and symmetrical. ASSESSMENT: 1. Cervical radiculopathy. 2. Cervical spondylosis with radiculopathy. 3. Displacement of cervical intervertebral disk with radiculopathy. 4. Cervical spinal stenosis. 5. Chronic intractable pain. PLAN: 1. We discussed treatment options with the patient today. He feels that the Gralise is working well to control his pain. He does receive this medicine through the [facility]. We will fax a prescription of Gralise 600 mg tablets, #90 with 2 additional refills, which is a 3 months medication. 2. The patient feels that nabumetone is beneficial in controlling his pain as well. Script given for 500 mg 1 tablet 3 times a day, #90 with 2 additional refills. The patient tells me he does not have any problems with dyspepsia or GI upset with this medication. 3. The patient did question about CBD oil versus medical marijuana. We discussed this for a significant amount of time, he was given the [employer] website to look up. He is not on any opioids through our clinic. I explained to him that since he is not on opioids if he would like to try the medical marijuana that he is able to do Some find it beneficial in controlling pain The patient tells me he has tried gummies in the past that he found very beneficial He tells me that he will look into this option for treatment. 4. The patient will return in 3 months' time period for medication refills. The patient is seen with Dr. Michael Saldivar today who also collaborated care. ��������������������������������������������� <ELECTRONICALLY SIGNED> ���������������������������������������� By: Jennifer Maddox ��������������������������������������������� 05/15/19 1534 [id number] Jennifer Maddox /sylvia
== END ==
LOC: PAIN 05-14 14:04
DX: M47.22 Other spondylosis with radiculopathy, cervical region (principal); M48.02 Spinal stenosis, cervical region; G89.4 Chronic pain syndrome; M50.10 Cervical disc disorder with radiculopathy, unspecified cervical region; Z79.899 Other long term (current) drug therapy

== ENCOUNTER → 2019-06-05 | Outpatient (CLI) | payer OTHER ==
[~2019-06-05] VITALS: Ht 193 cm; Wt 100.8 kg
--- NOTE | ~2019-06-05 | HPC ---
[facility] [address] [address] PAIN MANAGEMENT CONSULTATION Name: JOHN TY Room #: REG [facility]#: [id number] Admission: 06/05/19 ������������������ Attend Phys: Michael Saldivar DO Discharge: ������������������ Date of : 57 Report #: [id number] THIS REPORT FOR: //name// CC: DONTE BOO [facility] physician/PCP Michael Saldivar DATE OF SERVICE: 06/05/2019 REFERRING PHYSICIAN: Dr. Donte Boo. CHIEF COMPLAINT: Neck pain, bilateral upper extremity pain with paresthesias. HISTORY OF PRESENT ILLNESS: As you know, the patient is a very pleasant 63-year-old male returning in followup visit to undergo cervical epidural injection under fluoroscopic guidance. The patient reports pain level today of around 3/10. He states pain is exacerbated with activity using his upper body or cervical extension. Pain is improved with medications, epidural injections and rest. He reports 60% improvement in overall pain with previous cervical epidural injection, returning today in followup visit to build on success of previous intervention. He denies any specific injury or trauma that may have led to symptom reoccurrence. ALLERGIES: No known drug allergies. CURRENT MEDICATIONS: Nabumetone, Gralise. SOCIAL HISTORY: The patient denies tobacco, IV or illicit drug use. Admits to occasional alcohol beverage. He is unaccompanied today. IMAGING: No new imaging available. PHYSICAL EXAMINATION: VITAL SIGNS: Blood pressure 139/82, pulse 66, respiratory rate 16 and unlabored. The patient is 100% on room air, height 6 feet 4 inches tall, weight 222.2 pounds and BMI calculated 27.1. GENERAL: Well-developed, well-nourished, well-hydrated 63-year-old male appearing stated age, pain is rated today at 3/10. HEENT: Normocephalic, atraumatic. Pupils equal, round, reactive to light. EXTREMITIES: Show no clubbing, no cyanosis, and no edema. MUSCULOSKELETAL: Upper extremity strength equal and symmetrical 5/5. He is intact to light touch from C5-T1 dermatomes. Spurling's test is positive. Cervical provocation testing is met with increasing pain with extension. ASSESSMENT: 1. Cervical radiculopathy. [facility] [address] [place] [address] PAIN MANAGEMENT CONSULTATION Name: MELONYJOHN Nayla Room #: REG [facility].#: [id number] Admission: 06/05/19 ������������������ Attend Phys: Michael Saldivar DO Discharge: ������������������ Date of : 57 Report #: [id number] 2. Cervical spondylosis with radiculopathy. 3. Displacement of cervical intervertebral disk with radiculopathy. 4. Cervical spinal stenosis. 5. Chronic intractable pain. PLAN: 1. The patient has returned today in followup visit to undergo next in the series of cervical epidural injections under fluoroscopic guidance. As you are aware, the patient received 60% improvement in overall pain with previous injection. He returns today to undergo this procedure to improve overall symptoms. He denies new injury, new trauma or any changes in medical history since our last visit. He has been advised risks and benefits of procedure, states understood and wished to proceed. 2. No medication changes made at today's visit. The patient will continue current medical therapy as previously prescribed. 3. We will see the patient back in followup visit on an as needed basis for next in a series of cervical epidural injections. PROCEDURE NOTE: DESCRIPTION OF PROCEDURE: Cervical epidural steroid injection under fluoroscopic guidance. After obtaining written consent, the patient was taken back to fluoroscopy suite, placed in prone position with separate pillows under chest and forehead to decrease cervical lordosis. The skin overlying cervical area then prepped and draped in aseptic fashion. The cervical interspaces were identified by AP fluoroscopy. Skin and subcutaneous tissue overlying target site injection anesthetized with 3 mL of 1% lidocaine. A 20-gauge 3-1/2 inch Tuohy needle advanced under fluoroscopic guidance towards the epidural space using a midline approach. Epidural space identified using loss of resistance to air technique. After negative aspiration for heme or cerebrospinal fluid, 1 mL of Isovue and Omnipaque injected. A cervical epidurogram confirmed using both AP and lateral fluoroscopy. After negative aspiration for heme or cerebrospinal fluid, 5 mL of a solution containing 2 mL 40 mg per mL, 80 mg total triamcinolone, 3 mL lidocaine 1% injected slowly. Needle then retracted approximately skilled nursing, then flushed with 1 mL of 1% lidocaine and then removed. Sterile bandage placed over injection site. No new motor deficits present in the upper extremities following procedure. The patient tolerated procedure well, carefully escorted [place] [address] PAIN MANAGEMENT CONSULTATION Name: JOHN TY Room #: REG CLI [facility]#: [id number] Admission: 06/05/19 ������������������ Attend Phys: Michael Saldivar DO Discharge: ������������������ Date of : 57 Report #: [id number] stable condition. No apparent complications. After meeting discharge criteria, the patient discharged to home. ��������������������������������������������� ���������������������������������������� By: ��������������������������������������������� [id number] Michael Saldivar DO /sylvia
[2019-06-05 09:19] VITALS: BP 139/82
--- NOTE | 2019-06-05 09:30 | NUR ---
Pain Clinic Assessment: 1. History of Osteoarthritis: neck History of Rheumatoid Arthritis: none 2. Height: 6 ft. 4 in. 193.0 cm. Weight: 222.2 lb. oz. 100.789 kg. Patient's BMI: 27.1 3. Vital Signs: BP: 139/82 Pulse: 66 Resp: 16 Temp: 02 Sat: 100 ECG Mon: 4. Pain Intensity: 3 5. Fall Risk: Dizziness: N Needs help standing or walking: N Fallen in the last 3 months: N Fall risk comments: having vertigo and seeing pt 6. Patient on Blood Thinner: None 7. History of Hypertension: N 8. Opioid Therapy greater than 6 weeks: N Opiate Contract Signed: 9. Risk Assessment Tool Provided: MODERATE RISK 03/06 10. Functional Assessment Tool: 11. Recreational Drug Use: Never Drug Type: Tobacco Use: Never Smoker Tobacco Type: Amount or Packs/day: How Many Years: Alcohol Use: Yes Frequency: Weekly Quant:
== END | disposition home or self-care (01) ==
LOC: PAIN 06:53
DX: M50.13 Cervical disc disorder with radiculopathy, cervicothoracic region (principal); M47.22 Other spondylosis with radiculopathy, cervical region; M48.02 Spinal stenosis, cervical region; G89.29 Other chronic pain; Z79.899 Other long term (current) drug therapy; Z98.890 Other specified postprocedural states

== ENCOUNTER → 2019-09-18 | Outpatient (CLI) | payer OTHER ==
[~2019-09-18] VITALS: Ht 193 cm; Wt 100.5 kg
[2019-09-18 10:37] VITALS: BP 145/80
--- NOTE | 2019-09-18 10:53 | NUR ---
Pain Clinic Assessment: 1. History of Osteoarthritis: NECK History of Rheumatoid Arthritis: DENIES 2. Height: 6 ft. 4 in. 193.0 cm. Weight: 221.6 lb. oz. 100.517 kg. Patient's BMI: 27.0 3. Vital Signs: BP: 145/80 Pulse: 68 Resp: 14 Temp: 02 Sat: 100 ECG Mon: 4. Pain Intensity: 3 5. Fall Risk: Dizziness: N Needs help standing or walking: N Fallen in the last 3 months: N Fall risk comments: having vertigo and seeing pt 6. Patient on Blood Thinner: None 7. History of Hypertension: N 8. Opioid Therapy greater than 6 weeks: N Opiate Contract Signed: 9. Risk Assessment Tool Provided: MODERATE RISK 03/06 10. Functional Assessment Tool: 11. Recreational Drug Use: Never Drug Type: Tobacco Use: Never Smoker Tobacco Type: Amount or Packs/day: How Many Years: Alcohol Use: Yes Frequency: Quant:
--- NOTE | 2019-09-19 14:49 | HPC ---
[facility] [address] [place] [address] PAIN MANAGEMENT CONSULTATION Name: JOHN TY [id number] Admission: 09/18/19 Attend Phys: Jennifer Maddox Discharge: Date of : 57 Report #: [id number] THIS REPORT FOR: //name// CC: Jennifer Henderson MD [facility] physician/PCP Michael Saldivar DATE OF SERVICE: 09/18/2019 CHIEF COMPLAINT: Neck pain, bilateral upper extremity pain and paresthesias. HISTORY OF PRESENT ILLNESS: This is a pleasant 64-year-old gentleman who returns to the pain clinic today for refill of his medications that he uses to help treat his ongoing cervical radiculopathy. He reports his pain score is 3/10 today, located in his neck and between his shoulder blades. He said occasionally it will radiate into his occipital area of his head and down both arms, more often in the left following the C7-T1 dermatomal distribution. He believes that his medications are very beneficial in helping control this pain as well as using ice. His pain does increase when he is sitting for prolonged periods of time as well as being active. He does complain of some daytime dizziness even though he has taken his Gralise slightly earlier in the evening but he has learned to compensate for this because the medication benefits overweigh this slight side effect. ALLERGIES: No known drug allergies. CURRENT LIST OF MEDICATIONS: Gralise 1200 mg at dinner, nabumetone 500 mg 3 times a day. PQRS: 1. He has a history of osteoarthritis in his neck. Denies any rheumatoid arthritis. 2. Height is 6 feet 4 inches, weight is 221. BMI is 27. 3. Vital signs 145/80, pulse is 68, respirations 14, and oxygen sat is 100. 4. Pain score is 3/10. 5. Complains of dizziness, does not need help walking or standing, has not fallen in the last 3 months. 6. The patient is not on any blood thinners or does not take medicine for hypertension. 7. Opioid therapy is not on. He has risk assessment that is moderate. Functional assessment is 46/70. 8. Recreational drug use, he denies. He is not a smoker and occasionally drinks alcohol. We did check the prescription monitoring system, but he is not filling any [address] [address] PAIN MANAGEMENT CONSULTATION Name: JOHN TY Room #: REG [facility] Leonela#: [id number] Admission: 09/18/19 Attend Phys: Jennifer Maddox Discharge: Date of : 57 Report #: [id number] narcotics on a regular basis. PHYSICAL EXAMINATION: GENERAL: This is alert and orientated 64-year-old gentleman who appears his stated age, placing his current pain score at 3/10. HEENT: Normocephalic, atraumatic. Extraocular eye muscles are intact. Mucous membranes are moist. EXTREMITIES: No clubbing, no cyanosis, no edema. MUSCULOSKELETAL: Upper extremity strength is symmetrical and equal at 5/5. He does complain of radiculopathy and numbness and burning in his left hand greater than the right following the C7-T1 dermatomal distribution. He has tenderness along the cervical region that radiates into his occipital areas as well. Cervical provocation testing is met with increasing pain with extension of his arms. ASSESSMENT: 1. Cervical radiculopathy. 2. Cervical spondylosis with radiculopathy. 3. Displacement of cervical intervertebral disk with radiculopathy. 4. Cervical spondylostenosis. 5. Chronic intractable pain. PLAN: 1. We discussed treatment options with the patient today. The patient finds that the Gralise is very beneficial in controlling his pain. He does complain of some slight dizziness during the day. I encouraged him to try and take one Gralise at dinner time to see if this dizziness improves throughout the day and his thought process is sometimes decreased as well. He will attempt that starting tonight for several nights if he notices an increase in his pain. He will return to 2 as long as he does not have any daytime side effects. 2. The patient is requesting another cervical epidural. He did receive greater than 50% improvement from the last one that has lasted several months, we will seek authorization for a cervical epidural at the C7-T1 dermatomal distribution to be performed by Dr. Michael Saldivar in 2 weeks' time. 3. Scripts given today for the Gralise 600 mg 2 #60 with 2 additional refills and nabumetone 500 mg t.i.d., #90 with 2 additional refills. 4. The patient is seen in collaboration today with Dr. Michael Saldivar who did see the patient as well. <ELECTRONICALLY SIGNED> By: Jennifer Maddox 09/19/19 1449 [id number] Jennifer Maddox /sylvia
== END ==
LOC: PAIN 08:39
DX: M47.22 Other spondylosis with radiculopathy, cervical region (principal); M50.30 Other cervical disc degeneration, unspecified cervical region; G89.4 Chronic pain syndrome; M43.12 Spondylolisthesis, cervical region

== ENCOUNTER → 2019-10-17 | Outpatient (CLI) | payer OTHER ==
[~2019-10-17] VITALS: Ht 193 cm; Wt 101.6 kg
--- NOTE | ~2019-10-17 | HPC ---
[facility] [address] [place] [address] PAIN MANAGEMENT CONSULTATION Name: JOHN TY Room #: REG [facility].#: [id number] Admission: 10/17/19 Attend Phys: Michael Saldivar DO Discharge: Date of : 57 Report #: [id number] THIS REPORT FOR: //name// CC: Robby Henderson MD FAM physician/PCP Michael Saldivar DATE OF SERVICE: 10/17/2019 REFERRING PHYSICIAN: Robby Henderson MD. CHIEF COMPLAINT: Neck pain and bilateral upper extremity pain with paresthesias. HISTORY OF PRESENT ILLNESS: As you know, the patient is a pleasant 64-year-old male returning in followup visit having received precertification to undergo next in the series of cervical epidural injections under fluoroscopic guidance. He states the combination of epidural injections along with the medications provided for pain control do allow him to go about his activities of daily living without significant pain interference. He has made today's appointment to undergo a cervical epidural injection to build on the success of previous intervention, which gave the patient a reported 70% improvement in overall pain, lasting until just recently. He states that he has suffered no new injury or trauma. We have received preauthorization for the patient to undergo the procedure today. ALLERGIES: No known drug allergies. CURRENT MEDICATIONS: Gralise 1200 mg p.o. at bedtime and nabumetone 500 mg 3 times a day. SOCIAL HISTORY: The patient denies tobacco, IV or illicit drug use. Admits to occasional alcohol beverage. He is accompanied by his , present in room today. IMAGING: No new imaging is available. PHYSICAL EXAMINATION: VITAL SIGNS: Blood pressure 128/88, pulse is 64, and respiratory rate 16 and unlabored. The patient is 100% on the room air. Height is 6 feet 4 inches tall, weight 224 pounds, and BMI calculated is 27.3. GENERAL: Well-developed, well-nourished, and well-hydrated 64-year-old male appearing stated age, pain is rated today, 7/10. HEENT: Normocephalic and atraumatic. Pupils are equal, round, and reactive to light. EXTREMITIES: Show no clubbing, no cyanosis, and no edema. [facility] [address] [place] [address] PAIN MANAGEMENT CONSULTATION Name: JOHN TY Nayla Room #: REG [facility]#: [id number] Admission: 10/17/19 Attend Phys: Michael Saldivar DO Discharge: Date of : 57 Report #: [id number] MUSCULOSKELETAL: Upper extremity strength remains symmetrical in the patient today, 5/5. He is intact to light touch from C5 through T1 dermatomes. He does note tactile sensation changes in the distal portion of the C6 dermatome and C7 dermatome on the left. Spurling's test is positive, left and negative, right. ASSESSMENT: 1. Cervical radiculopathy. 2. Cervical spondylosis with radiculopathy. 3. Displacement of the cervical intervertebral disk with radiculopathy. 4. Cervical spinal stenosis. 5. Chronic intractable pain. PLAN: 1. The patient has returned today in followup visit, requesting to undergo a cervical epidural injection under a fluoroscopic guidance. He has noted excellent benefit with previous cervical epidural injections, hopeful to see a similar improvement today. The patient has been advised of the risks and benefits of a cervical epidural injection. These risks include, but are not necessarily, limited to bleeding, bruising, infection, worsening pain, and no relief of pain and also risk of temporary or permanent muscle weakness, temporary or permanent nerve damage, possible paralysis, post-dural puncture headache, and . The patient states understood and wished to proceed. 2. No medication changes made at today's visit. The patient will continue current medication management as previously prescribed. 3. We will see the patient back in followup visit on an as needed basis for a possible next in the series of cervical epidural injections, but otherwise, he will return for his pre-approved appointment time for a medication management. PROCEDURE NOTE: DESCRIPTION OF PROCEDURE: CERVICAL EPIDURAL STEROID INJECTION UNDER FLUOROSCOPIC GUIDANCE: After obtaining written consent, the patient was taken back to fluoroscopy suite and placed in a prone position with separate pillows under chest and forehead to decrease cervical lordosis. Skin overlying the cervical area was then prepped and draped in aseptic fashion. The C7-T1 cervical interspace was identified by AP fluoroscopy. Skin and subcutaneous tissue overlying target site of injection was anesthetized with 3 mL of 1% lidocaine. A 20-gauge, 3-1/2 inch Tuohy needle was advanced under a fluoroscopic guidance towards the epidural space using midline approach. Epidural space was identified using a loss of resistance to air technique. After a negative aspiration for heme or cerebrospinal fluid, 1 mL of Omnipaque was injected. A cervical epidurogram was confirmed using both AP and oblique fluoroscopy. After a negative aspiration for heme or cerebrospinal fluid, 5 mL of a solution containing 2 mL of 40 mg per mL, 80 mg total triamcinolone along with 3 mL lidocaine 1% was injected slowly. Needle was retracted approximately half way, [address] [address] PAIN MANAGEMENT CONSULTATION Name: JOHN TY Room #: REG [facility].#: [id number] Admission: 10/17/19 Attend Phys: Michael Saldivar DO Discharge: Date of : 57 Report #: [id number] flushed with 1 mL of 1% lidocaine and then removed. There were no new deficits in the upper or lower extremities following the procedure. The patient tolerated the procedure well and carefully escorted to recovery room in a stable condition. No apparent complications. After meeting discharge criteria, the patient was discharged home. By: [id number] Michael Saldivar DO /nt
[2019-10-17 14:26] VITALS: BP 128/88
--- NOTE | 2019-10-17 14:47 | NUR ---
Pain Clinic Assessment: 1. History of Osteoarthritis: NECK History of Rheumatoid Arthritis: DENIES 2. Height: 6 ft. 4 in. 193.0 cm. Weight: 224.0 lb. oz. 101.606 kg. Patient's BMI: 27.3 3. Vital Signs: BP: 128/88 Pulse: 64 Resp: 16 Temp: 02 Sat: 100 ECG Mon: 4. Pain Intensity: 7 5. Fall Risk: Dizziness: Y Needs help standing or walking: N Fallen in the last 3 months: N Fall risk comments: having vertigo and seeing pt 6. Patient on Blood Thinner: None 7. History of Hypertension: N 8. Opioid Therapy greater than 6 weeks: N Opiate Contract Signed: 9. Risk Assessment Tool Provided: 0-LOW RISK 10. Functional Assessment Tool: 47/ 11. Recreational Drug Use: Never Drug Type: Tobacco Use: Never Smoker Tobacco Type: Amount or Packs/day: How Many Years: Alcohol Use: Yes Frequency: Quant:
== END | disposition home or self-care (01) ==
LOC: PAIN 07:02
DX: M50.10 Cervical disc disorder with radiculopathy, unspecified cervical region (principal); M47.22 Other spondylosis with radiculopathy, cervical region; M48.02 Spinal stenosis, cervical region; G89.29 Other chronic pain; Z79.899 Other long term (current) drug therapy

== ENCOUNTER → 2020-01-15 | Outpatient (CLI) | payer OTHER ==
[~2020-01-15] VITALS: Ht 193 cm; Wt 101.7 kg
[~2020-01-15] MED LIST changes: +MOBIC7.5 MG PO
[2020-01-15 09:51] VITALS: BP 130/74
--- NOTE | 2020-01-15 10:05 | NUR ---
Pain Clinic Assessment: 1. History of Osteoarthritis: NECK History of Rheumatoid Arthritis: DENIES 2. Height: 6 ft. 4 in. 193.0 cm. Weight: 224.2 lb. oz. 101.697 kg. Patient's BMI: 27.3 3. Vital Signs: BP: 130/74 Pulse: 63 Resp: 16 Temp: 02 Sat: 100 ECG Mon: 4. Pain Intensity: 4 5. Fall Risk: Dizziness: Y Needs help standing or walking: N Fallen in the last 3 months: N Fall risk comments: having vertigo and seeing pt 6. Patient on Blood Thinner: None 7. History of Hypertension: N 8. Opioid Therapy greater than 6 weeks: N Opiate Contract Signed: 9. Risk Assessment Tool Provided: 0-LOW RISK 10. Functional Assessment Tool: / 11. Recreational Drug Use: Never Drug Type: Tobacco Use: Never Smoker Tobacco Type: Amount or Packs/day: How Many Years: Alcohol Use: Yes Frequency: Weekly Quant: FEW GLASSES OF WINE
--- NOTE | 2020-01-17 14:49 | HPC ---
[facility] [address] [place] [address] PAIN MANAGEMENT CONSULTATION Name: JOHN TY Room #: REG [facility]#: [id number] Admission: 01/15/20 Attend Phys: Jennifer Maddox Discharge: Date of : 57 Report #: [id number] THIS REPORT FOR: cc: FAM - No family physician/PCP FAM - No family physician/PCP Jennifer Maddox ~ DATE OF SERVICE: 01/15/2020 CHIEF COMPLAINT: Neck pain, bilateral upper extremity pain and paresthesias. HISTORY OF PRESENT ILLNESS: This is a 64-year-old gentleman who returns to the pain clinic today for refill of his medications today. He is reporting a pain score of 4/10 with the majority of his pain in his neck and occipital area. He does occasionally have radiculopathy and numbness in his hands, but today that is not present. His pain is worse with activity and prolonged sitting, which he does at work. He feels the medication Gralise is beneficial. Today, he is wondering about rotation of his nonsteroidal anti-inflammatory. He feels that it has not been as beneficial as it has been in the past. He is also here to discuss if he should have another injection in the near future. ALLERGIES: No known drug allergies. CURRENT LIST OF MEDICATIONS: Nabumetone 500 mg t.i.d., Gralise 1800 mg at dinner. PATIENT'S PQRS: 1. He has osteoarthritis in his neck. He denies any rheumatoid arthritis. 2. Height is 6 feet 4 inches, weight is 224, BMI is 27. 3. Vital signs 130/74, pulse is 63, respirations 16, oxygen sat is 100. 4. Pain score is 4/10. 5. Complains of slight dizziness, does not need help walking or standing, has not fallen in the last 3 months. 6. The patient is not on any blood thinners or medicine for hypertension. His opioid therapy is not on. His risk assessment tool is low. Functional assessment is 47/70. 7. Recreational drug use, he denies. He is not a smoker and does drink alcohol on a daily basis. PHYSICAL EXAMINATION: GENERAL: This is a well-developed, well-nourished, well-hydrated 64-year-old gentleman who appears his stated age, placing his current pain score at 4/10. HEENT: Normocephalic, atraumatic. Extraocular eye muscles are intact. Mucous membranes are moist. MUSCULOSKELETAL: His upper extremity strength is equal and symmetrical. He has pain and tenderness in his neck that radiates into his occipital area and [address] [address] PAIN MANAGEMENT CONSULTATION Name: JOHN TY Room #: REG [facility] MartineTristin#: [id number] Admission: 01/15/20 Attend Phys: Jennifer Maddox Discharge: Date of : 57 Report #: [id number] occasional radiculopathy following this C6-C7 dermatomal distribution. He has intact to light touch from C5 through T1 dermatomes. ASSESSMENT: 1. Cervical radiculopathy. 2. Cervical spondylosis with radiculopathy. 3. Cervical spinal stenosis. 4. Management of long-term medications. PLAN: 1. We discussed treatment options with the patient today. The patient feels that the epidural has still been beneficial, though he did not get as substantial as a relief. He is rating a pain percentage relief of 80%. I explained that we will continue to reinject periodically if he continues to get substantial relief to the point when he gets less than 50% from the injections for only a few days that we would consider him a surgical candidate. I believe we are not to that point and encouraged him to continue his periodic epidurals when he needs it, though today he is still reporting significant relief from his September injection. 2. We will refill his Gralise 600 mg tablets 3 tablets at dinner. This will be sent to [facility] for refills, which is a mail order that he uses. 3. The patient feels like the nabumetone is not as effective as it had in the past, some days taking 4 tablets a day. I explained to him that that is too much anti-inflammatory to take. We are worried about GI upset or other complications. We will rotate him to meloxicam 7.5, #60 for no refills. The patient will trial this for a month and if it is effective, he will call us and we will call in additional refills. If it is not effective, we will transition him back to his nabumetone 500 mg tablets. He verbalizes understanding. 4. The patient is seen in collaboration with Dr. Michael Saldivar. The patient will call for an appointment as needed. <ELECTRONICALLY SIGNED> By: Jennifer Maddox 01/17/20 1449 1058 1200 Jennifer Maddox /sylvia
== END ==
LOC: PAIN 06:44
DX: M47.22 Other spondylosis with radiculopathy, cervical region (principal); M48.02 Spinal stenosis, cervical region; Z68.27 Body mass index [BMI] 27.0-27.9, adult; Z79.899 Other long term (current) drug therapy

== ENCOUNTER → 2020-02-12 | Outpatient (CLI) | payer OTHER ==
[~2020-02-12] VITALS: Ht 193 cm; Wt 103.6 kg
[2020-02-12 09:06] VITALS: BP 123/79
--- NOTE | 2020-02-12 09:21 | NUR ---
Pain Clinic Assessment: 1. History of Osteoarthritis: NECK History of Rheumatoid Arthritis: DENIES 2. Height: 6 ft. 4 in. 193.0 cm. Weight: 228.4 lb. oz. 103.602 kg. Patient's BMI: 27.8 3. Vital Signs: BP: 123/79 Pulse: 66 Resp: 16 Temp: 02 Sat: 100 ECG Mon: 4. Pain Intensity: 4 5. Fall Risk: Dizziness: Y Needs help standing or walking: N Fallen in the last 3 months: N Fall risk comments: having vertigo and seeing pt 6. Patient on Blood Thinner: None 7. History of Hypertension: N 8. Opioid Therapy greater than 6 weeks: N Opiate Contract Signed: 9. Risk Assessment Tool Provided: 0-LOW RISK 10. Functional Assessment Tool: / 11. Recreational Drug Use: Never Drug Type: Tobacco Use: Never Smoker Tobacco Type: Amount or Packs/day: How Many Years: Alcohol Use: Yes Frequency: Quant:
--- NOTE | 2020-02-12 13:25 | HPC ---
[facility] [address] [place] [address] PAIN MANAGEMENT CONSULTATION Name: JOHN TY Nayla [facility] [id number] Admission: 02/12/20 Attend Phys: Michael Saldivar DO Discharge: Date of : 57 Report #: [id number] THIS REPORT FOR: cc: LEOBARDO - No family physician/PCP FAM - No family physician/PCP Michael Saldivar DO ~ DATE OF SERVICE: 02/12/2020 CHIEF COMPLAINT: Neck pain, bilateral lower extremity pain with paresthesias, upper back pain. HISTORY OF PRESENT ILLNESS: As you know, the patient is a pleasant 64-year-old male returning in followup visit to undergo cervical epidural injection under fluoroscopic guidance to address cervical radicular symptoms. The patient reports pain score today of 4/10. He states that medications do provide benefit, but he is having some side effects with the Gralise causing some dysphoric effects periodically. He states the anti-inflammatories he has been provided do not appear to be providing much in the way of improvement. He has been self-medicating, increasing his dose up to 4-5 tablets at a time 3-4 times a day. We have cautioned him against doing this as this is quite detrimental to his gastrointestinal tract and kidneys as well as not recommended treatment course. He should discontinue this activity immediately. He returns today to undergo cervical epidural injection, but also wants to discuss these options for treatment as his symptoms have progressed. He returns today for the injection and discussion. He denies new injury or trauma that may have led to symptom reoccurrence. ALLERGIES: No known drug allergies. CURRENT MEDICATIONS: Meloxicam 7.5 mg 4 tabs twice a day, Gralise 600 mg 3 tabs p.o. at bedtime. SOCIAL HISTORY: The patient denies tobacco use. Denies IV or illicit drug use. Admits to alcohol on a daily basis. He is working, not receiving workmen's compensation, unaccompanied today. IMAGING: No new imaging available. PHYSICAL EXAMINATION: VITAL SIGNS: Blood pressure 123/79, pulse 66, respiratory rate 16 and unlabored. The patient is 100% on room air, height 6 feet 4 inches tall, weight 228.4 pounds, BMI calculated 27.8. GENERAL: Well-developed, well-nourished, well-hydrated 64-year-old male appearing stated age, pain is rated today 4/10. [address] [address] PAIN MANAGEMENT CONSULTATION Name: JOHN TY Room #: REG [facility]#: [id number] Admission: 02/12/20 Attend Phys: Michael Saldivar DO Discharge: Date of : 57 Report #: [id number] HEENT: Normocephalic, atraumatic. Pupils equal, round, reactive to light. NEUROLOGIC: Speech fluent. The patient deemed a good historian. EXTREMITIES: Show no clubbing, no cyanosis, and no edema. MUSCULOSKELETAL: Upper extremity strength is symmetrical 5/5. Muscle bulk and tone is equal and symmetrical in comparing left upper extremity to right. Deep tendon reflexes are symmetrical at biceps, brachialis and triceps. Spurling's test is positive, both left and right. There is restriction of cervical rotation and the lateral flexion due to increased pain. ASSESSMENT: 1. Cervical radiculopathy. 2. Cervical spondylosis with radiculopathy. 3. Displacement of cervical intervertebral disk with radiculopathy. 4. Cervical spinal stenosis. 5. Chronic intractable pain. PLAN: 1. The patient returns today in followup visit to undergo a cervical epidural injection under fluoroscopic guidance. He has done well with previous cervical epidural injections, hopeful to see similar improvement today. He has been advised risks and benefits of the procedure, states he understood and wished to proceed. 2. The patient indicates that he is self-medicating with his current dosing of therapy. He has attempted to increase his Gralise dose and we have advised him that the top dose of Gralise is 1800 mg p.o. at bedtime. No further efficacy is noted by increasing this medication and side effects will be greatly increased. We recommend he utilize the medication as directed. He states he will make this correction today and continue the 1800 mg dose as required. 3. The patient indicates that he has been taking his meloxicam 4 tablets up to twice a day. We have cautioned him about the use of anti-inflammatory medications on the GI tract as well as the kidneys. This would be quite detrimental and long-term treatment. It is not recommended. He is escalating his dose without a physician agreement. We recommend he reduce back to the 7.5 mg twice a day for baseline control of his inflammation. He is not to escalate dose further. The patient was cautioned not to misuse his medications further. We are concerned that this will lead to detrimental harm in the very near future and have cautioned him as of such. 4. We did discuss with the patient other treatment options. I do feel ultimately the patient will need to look towards the surgical options to address his ongoing symptoms if the epidural injections and medication management are not effective. He will consider these options. We did discuss medications that are going to be soon available and these might be beneficial for the patient. We will continue to use a conservative treatment option as possible. 5. The patient has been advised risks and benefits of a cervical epidural injection. These risks include but are not necessarily limited to bleeding, bruising, infection, worsening pain, no relief of pain, also risk of temporary [facility] [address] [place] [address] PAIN MANAGEMENT CONSULTATION Name: JOHN TY Nayla Room #: REG [facility].#: [id number] Admission: 02/12/20 Attend Phys: Michael Saldivar DO Discharge: Date of : 57 Report #: [id number] or permanent muscle weakness, temporary or permanent nerve damage, possible paralysis, post-dural puncture headache and . The patient states understood and wished to proceed. 6. We will see the patient back in followup visit on an as needed basis for possible next in the series of epidural injections. We will see him back on his previously agreed upon date for refill of medications. PROCEDURE NOTE: DESCRIPTION OF PROCEDURE: C7-T1 cervical epidural steroid injection under fluoroscopic guidance. After obtaining written consent, the patient was taken back to fluoroscopy suite, placed in prone position with separate pillows under chest and forehead to decrease cervical lordosis. Skin overlying cervical area then prepped and draped in aseptic fashion. C7-T1 cervical interspace was identified by AP fluoroscopy. Skin and subcutaneous tissue overlying target site injection anesthetized with 3 mL of 1% lidocaine. A 20-gauge 3-1/2 inch Tuohy needle advanced under fluoroscopic guidance towards the epidural space using a midline approach. Epidural space identified using loss of resistance to air technique. After negative aspiration for heme or cerebrospinal fluid, 1 mL of Omnipaque injected. A cervical epidurogram confirmed using both AP and oblique fluoroscopy. After negative aspiration for heme or cerebrospinal fluid, 5 mL of a solution containing 2 mL 40 mg per mL, 80 mg total triamcinolone along with 3 mL of lidocaine 1% injected slowly. Needle then retracted mcc, flushed with 1 mL of 1% lidocaine and then removed. Sterile bandage placed over injection site. No new motor deficits present in the upper extremities following procedure. The patient tolerated procedure well, carefully escorted to recovery room in stable condition. No apparent complications. After meeting discharge criteria, the patient was then discharged home. <ELECTRONICALLY SIGNED> By: Michael Saldivar DO 02/12/20 1325 [id number] [id number] Michael Saldivar DO /nt
== END | disposition home or self-care (01) ==
LOC: PAIN 06:58
DX: M47.22 Other spondylosis with radiculopathy, cervical region (principal); M50.10 Cervical disc disorder with radiculopathy, unspecified cervical region; M48.02 Spinal stenosis, cervical region; G89.29 Other chronic pain; Z79.899 Other long term (current) drug therapy

== ENCOUNTER → 2020-07-09 | Outpatient (CLI) | payer OTHER ==
[~2020-07-09] VITALS: Ht 193 cm; Wt 102.4 kg
[2020-07-09 10:08] VITALS: BP 134/77
--- NOTE | 2020-07-09 10:20 | NUR ---
Pain Clinic Assessment: 1. History of Osteoarthritis: NECK History of Rheumatoid Arthritis: DENIES 2. Height: 6 ft. 4 in. 193.0 cm. Weight: 225.8 lb. oz. 102.422 kg. Patient's BMI: 27.5 3. Vital Signs: BP: 134/77 Pulse: 63 Resp: 14 Temp: 02 Sat: 100 ECG Mon: 4. Pain Intensity: 4-5 5. Fall Risk: Dizziness: Y Needs help standing or walking: N Fallen in the last 3 months: N Fall risk comments: having vertigo and seeing pt 6. Patient on Blood Thinner: None 7. History of Hypertension: N 8. Opioid Therapy greater than 6 weeks: N Opiate Contract Signed: 9. Risk Assessment Tool Provided: 0-LOW RISK 10. Functional Assessment Tool: 11. Recreational Drug Use: Never Drug Type: Tobacco Use: Never Smoker Tobacco Type: Amount or Packs/day: How Many Years: Alcohol Use: Yes Frequency: Quant:
--- NOTE | 2020-07-09 15:17 | HPC ---
[facility] [address] [place] [address] PAIN MANAGEMENT CONSULTATION Name: MELONYJOHN Winlsow Room #: REG [facility].#: [id number] Admission: 07/09/20 Attend Phys: Jennifer Maddox Discharge: Date of : 57 Report #: [id number] THIS REPORT FOR: cc: FAM - No family physician/PCP FAM - No family physician/PCP Jennifer Maddox ~ CC: Michael Saldivar DO DATE OF SERVICE: 07/09/2020 CHIEF COMPLAINT: Neck pain, bilateral lower extremity pain and paresthesias. HISTORY OF PRESENT ILLNESS: This is a 64-year-old gentleman who returns to the pain clinic today to discuss his treatment plan. He reports that the cervical epidural steroid injection that Dr. Michael Saldivar performed in January afforded him 95% relief for less than a month. He feels that it is not as effective as before. He does report that his made him relax and do no activity for the first week to see if this was more beneficial for lasting effect, which it did not prove to be. The patient is reporting a pain score of 4-5 today. He understands that he is not going to be pain-free, but he is hopeful for better relief than he is currently getting with his nabumetone and Gralise. The patient does report that he has been using medical marijuana. He obtained his medicinal green card through Dr. Valdovinos at [facility] and has been using gummies every night that do contain THC and CBD. He reports that he has good pain control in the evening and is able to sleep, but during the day his pain does escalate when he does perform any activities. I am speaking with his via the phone today and the patient during our visit today. He is reporting again pain score of 4-5 in his neck and occipital area. He does have some ongoing low back pain as well. He reports an aching pressure, very tight feeling in his neck. It is worse with any activity and prolonged sitting. He has gotten up several times throughout our visit today. He is wondering if there are other options besides injections and current medications. ALLERGIES: No known drug allergies. CURRENT LIST OF MEDICATIONS: Nabumetone 500 mg t.i.d. and Gralise 600 mg 3 tablets at bedtime. PQRS: 1. He has osteoarthritis in his neck. Denies any rheumatoid arthritis. 2. Height is 6 feet 4 inches, weight is 225. BMI is 27. Vital signs 134/77, pulse is 63, respirations 14, oxygen sat is 100, pain score is 4-5. 3. Fall risk, complains of slight dizziness. Does not need assistance with walking or standing, has not fallen in the last 3 months. He denies any blood pressure medicines or blood thinners. He is not on any opioid therapy. His [facility] [address] [place] [address] PAIN MANAGEMENT CONSULTATION Name: MELONYJOHN Nayla Room #: REG [facility] Gipson#: [id number] Admission: 07/09/20 Attend Phys: Jennifer Maddox Discharge: Date of : 57 Report #: [id number] risk assessment is low. Functional assessment is 47/70. 4. Recreational drug use. He does use marijuana gummies. He is not a smoker and does drink alcohol. PHYSICAL EXAMINATION: GENERAL: This is alert and orientated, well-developed, well-nourished, well-hydrated 64-year-old gentleman who appears his stated age, rating his pain score 4/10 today. HEENT: Normocephalic, atraumatic. Pupils equal, round and reactive to light. NEUROLOGICAL: Speech is fluent. He is a good historian. Has slight dizzy sensations occasionally. EXTREMITIES: No clubbing, no cyanosis, no edema. MUSCULOSKELETAL: Deep tendon reflexes are symmetrical. Spurling test is positive bilaterally. He has restrictive cervical range of motion in the lateral flexion with increased pain that does radiate into his arms. His upper extremity strength is symmetrical at 5/5 with good muscle bulk and tone as well. Complains of slight lumbosacral tenderness with no radiculopathy. ASSESSMENT: 1. Cervical radiculopathy. 2. Cervical spondylosis with radiculopathy. 3. Displacement of cervical intervertebral disk with radiculopathy. 4. Cervical spinal stenosis. 5. Chronic intractable pain. PLAN: 1. We discussed treatment options with the patient today. We find that the nabumetone is beneficial and does not give him any GI upsets where he felt the meloxicam was not as effective. We will continue on nabumetone 500 mg t.i.d., #90 sent with 5 additional refills. 2. We did discuss that he finds benefit from the Gralise taking 1800 mg at dinnertime. He did question if a [id number] dosing might be beneficial. We discussed the pros and cons of this and explained that he had taken Gabapentin in the past. We will continue him on the Gralise faxing this to his mail-of pharmacy for another 3 months. 3. We did discuss possible surgery options since the injections have been losing their efficacy. He was given the names of Jorge Luis Leyva, Ervin Lara and Rip Adames to see if any of those neurosurgeons are on his insurance plan. He was instructed to get a copy of his actual MRI disk to take to his neurosurgeons' appointment instructing him if he is able to see a nurse practitioner if that affords him a sooner appointment in following up, again stating that surgical may not be the option presently, but it is worth a discussion with the neurosurgeon. The patient does continue to do his stretches at home from his physical therapy that he has had in the past. 4. I explained to the patient that we are unable to give him any oral opioid medications since he is taking marijuana gummies on a daily basis. I explained [address] [address] PAIN MANAGEMENT CONSULTATION Name: JOHN TY [id number] Admission: 07/09/20 Attend Phys: Jennifer Maddox Discharge: Date of : 57 Report #: [id number] to him that since he does take it at night, maybe he needs to find a dose that is beneficial in reducing some of his pain during the day with minimal effects in his mentation. The patient is agreeable. 5. The patient is seen in collaboration with Dr. Michael Saldivar. <ELECTRONICALLY SIGNED> By: Jennifer Maddox 07/09/20 1517 [id number] [id number] Jennifer Maddox /nt
== END ==
LOC: PAIN 06:51
PROVIDERS: ATTEND Clinical Nurse Specialist Adult Health
DX: M50.10 Cervical disc disorder with radiculopathy, unspecified cervical region (principal); M47.22 Other spondylosis with radiculopathy, cervical region; M48.02 Spinal stenosis, cervical region; M79.604 Pain in right leg; M79.605 Pain in left leg; R20.2 Paresthesia of skin; G89.29 Other chronic pain; Z79.899 Other long term (current) drug therapy

== ENCOUNTER → 2021-01-13 | Outpatient (CLI) | payer OTHER ==
[~2021-01-13] VITALS: Ht 193 cm; Wt 101.6 kg
[~2021-01-13] MED LIST changes: +NABUMETONE 500500 M2 PO
[2021-01-13 10:32] VITALS: BP 132/76
--- NOTE | 2021-01-13 10:48 | NUR ---
Pain Clinic Assessment: 1. History of Osteoarthritis: NECK History of Rheumatoid Arthritis: DENIES 2. Height: 6 ft. 4 in. 193.0 cm. Weight: 224.0 lb. oz. 101.606 kg. Patient's BMI: 27.3 3. Vital Signs: BP: 132/76 Pulse: 60 Resp: 18 Temp: 02 Sat: 100 ECG Mon: 4. Pain Intensity: 4 5. Fall Risk: Dizziness: Y Needs help standing or walking: N Fallen in the last 3 months: Y Fall risk comments: having vertigo and seeing pt 6. Patient on Blood Thinner: None 7. History of Hypertension: N 8. Opioid Therapy greater than 6 weeks: N Opiate Contract Signed: 9. Risk Assessment Tool Provided: 0-LOW RISK 10. Functional Assessment Tool: / 11. Recreational Drug Use: Never Drug Type: Tobacco Use: Never Smoker Tobacco Type: Amount or Packs/day: How Many Years: Alcohol Use: Yes Frequency: Weekly Quant: 2
--- NOTE | 2021-01-14 07:28 | HPC ---
[facility] [address] [address] PAIN MANAGEMENT CONSULTATION Name: SENIAHOLLYJOHN Nayla Room #: REG [facility] Lizett.#: [id number] Admission: 01/13/21 Attend Phys: Michael Saldivar DO Discharge: Date of : 57 Report #: [id number] THIS REPORT FOR: cc: LEOBARDO - No family physician/PCP FAM - No family physician/PCP Michael Saldivar DO ~ DATE OF SERVICE: 01/13/2021 CHIEF COMPLAINT: Neck pain, bilateral upper extremity pain with intermittent paresthesias. HISTORY OF PRESENT ILLNESS: As you know, the patient is a 65-year-old male who returns today in followup visit with continued neck pain, bilateral upper extremity pain with paresthesias. The patient has been stabilized on a dose of Gralise 1800 mg p.o. at bedtime along with the use of nabumetone 500 mg 3 times a day for baseline osteoarthritic pain. The patient was doing very well at this combination of medications, but is now experiencing increased daytime somnolence and is experiencing also some memory issues. The patient also reports that he has recently started marijuana based gummy bears which could be the source of the new symptoms. He has not backed off on either the medication or the gummy bears since the symptoms began. He returns today in followup visit reporting a pain score of about 4/10. He is considering surgical options at this point and wishes to discuss this further. He returns today in followup visit to discuss treatment options for suspected cervical radicular pain. He is also describing dizziness and dysphoric effects that have become much more intense. He does not feel this is related to the medications. ALLERGIES: No known drug allergies. CURRENT MEDICATIONS: For pain, nabumetone 500 mg 3 times a day, Gralise 1800 mg p.o. at bedtime. SOCIAL HISTORY: The patient reports himself a nonsmoker. Denies IV or illicit drug use. Admits to an occasional alcohol beverage. He is unaccompanied today. IMAGING: No new imaging available. PQRS: The patient has known cervical facet arthropathy. No rheumatoid arthritis. He is placing current pain score 4/10. He is not a fall risk, but has had a fall in the last 3 months. Apparently, he fell after experiencing some vertigo. This has not been evaluated by Neurology. The patient is not on blood thinners, nor is he treated for hypertension. He is not on chronic opioids, has a low opiate addiction potential based on our assessment tool. Pain impact is 47/70, severe interference of daily activities secondary to pain. PHYSICAL EXAMINATION: [facility] [address] [place] [address] PAIN MANAGEMENT CONSULTATION Name: JOHN TY Room #: REG [facility].#: [id number] Admission: 01/13/21 Attend Phys: Michael Saldivar DO Discharge: Date of : 57 Report #: [id number] VITAL SIGNS: Blood pressure 132/76, pulse is 60, respiratory rate 18 and unlabored. The patient is 100% on room air, height 6 feet 4 inches tall, weight 224 pounds, BMI calculated 27.3. GENERAL: Well-developed, well-nourished, well-hydrated 65-year-old male appearing stated age, placing current pain score 4/10. HEENT: Normocephalic, atraumatic. Pupils equal, round and reactive. NEUROLOGIC: Speech fluent. The patient is wearing a mask in compliance with COVID-19 regulations. EXTREMITIES: Show no clubbing, no cyanosis, and no edema. MUSCULOSKELETAL: Spurling's test is positive bilaterally. Cervical provocation testing is met with increasing pain with moderate restriction of motion. Upper extremity strength appears symmetrical 5/5. Muscle bulk and tone is equal and symmetrical in comparing upper extremities. Deep tendon reflexes are equal and symmetrical, but diminished. Vertigo sensation is elicited with a rapid movement of the head, but there is no noted nystagmus. ASSESSMENT: 1. Cervical radiculopathy. 2. Cervical spondylosis with radiculopathy. 3. Displacement of cervical intervertebral disk with radiculopathy. 4. Cervical spinal stenosis. 5. Vertigo. 6. Chronic intractable pain. PLAN: 1. The patient returns today in followup visit with continued cervical radicular symptoms. We have trialed the patient on medication for an extended period of time and he noted initially good benefit, but unfortunately symptoms began to return and he is now experiencing daytime somnolence and dysphoric effects. He is concerned may be due to the medication. He returns to discuss treatment options. He is also considering surgery and is requiring a visit today to obtain an MRI referral and referral to Neurosurgery. 2. The patient will undergo MRI of the cervical spine without contrast. This will help determine whether or not surgical options are going to be ultimately necessary. We could also discuss the pathology that is present and whether or not surgical options would be of benefit or whether adjustments in medication management would be most effective. The patient will undergo the MRI imaging as quickly as possible, review those findings and then discussed the treatment options that may exist based on that pathology. The patient will make an appointment to undergo the MRI. He will contact our clinic to advise once it has been completed and we will review those findings. 3. The patient is reporting potential side effects to the Gralise. He states he is experiencing some fairly significant daytime somnolence. We recommend a slight adjustment in the medication at this time. We would recommend taking 2 of the Gralise tablets at night and 1 in the daytime. This may reduce his morning time somnolence that he is most concerned about, but may also add some [facility] [address] [place] [address] PAIN MANAGEMENT CONSULTATION Name: JOHN TY Room #: REG [facility] Gipson#: [id number] Admission: 01/13/21 Attend Phys: Michael Saldivar DO Discharge: Date of : 57 Report #: [id number] analgesic benefit during the daytime hours when he is experiencing most of his paresthesias. He will make this adjustment and advise us of the efficacy. If he notes worsening side effects, he will discontinue the morning dose entirely and continue with 2 doses at night. The patient will watch for improvement in his dizziness as well with the reduction in medication. If this is the case, we would recommend coming off Gralise entirely and discuss other treatment options. 4. We have recommended the patient discontinue the use of his marijuana gummy at this time. He is reporting mainly sleepiness and dysphoric effects with that therapy. We recommend he discontinue this activity at this time, so that we can determine the potential sources of his issues. The patient is agreeable to discontinue the use of the gummy bears immediately. 5. The patient was provided refill prescription of his Gralise at the 1800 mg dose. I do not feel the Gralise is the source of the patient's symptoms at present and we recommend he continue on the medication for the neuropathic pain control. He was given the prescription with 2 refills, 3 months' worth of medication. If the patient has adjustments in therapy or does note that his symptoms are related to that medication we will discontinue its use. 6. The patient was provided refill prescription of nabumetone 500 mg dose 1 tab p.o. t.i.d. I have given the patient #90 tablets, 2 refills, 3 months' worth of medication. The patient is denying dyspepsia, worsening of blood pressure, lower extremity edema with its use. He will continue the therapy for baseline pain control. 7. The patient has requested and we have provided a one-time dose of Viagra 100 mg dose. He believes the medications provided and his ongoing pain are causing erectile dysfunction. We have given the patient the medication with the understanding that this is a one-time dose and have to follow up with PCP to continue this therapy and to be evaluated by Urology and determine if there is any other organic cause for his symptoms other than just pain and medication effects. The patient was given #15 tablets, no refills. 8. The patient will contact our clinic once he has undergone his MRI of the cervical spine. We will review those findings once they are available. We will make adjustments in his therapy based on those findings and whether or not surgical options would be necessary. I did give the patient the names of surgeons in the area that would be adept at providing the surgical procedures necessary if deemed appropriate. 9. We will see the patient back in followup visit in 3 months for medication management, earlier if adjustments need to be addressed. <ELECTRONICALLY SIGNED> By: Michael Saldivar DO 01/14/21 0728 [id number] Michael Saldivar DO /nt
== END ==
LOC: PAIN 06:57
PROVIDERS: ATTEND Anesthesiology Pain Medicine
DX: M50.10 Cervical disc disorder with radiculopathy, unspecified cervical region (principal); M47.22 Other spondylosis with radiculopathy, cervical region; R42 Dizziness and giddiness; G89.29 Other chronic pain; M48.02 Spinal stenosis, cervical region; Z88.8 Allergy status to other drugs, medicaments and biological substances; Z79.899 Other long term (current) drug therapy

== ENCOUNTER → 2021-04-21 | Outpatient (CLI) | payer OTHER ==
[~2021-04-21] VITALS: Ht 193 cm; Wt 100.2 kg
[~2021-04-21] MED LIST changes: +[UNRECOGNIZED DRUG - OTHER]
[2021-04-21 10:04] VITALS: BP 130/86
--- NOTE | 2021-04-21 10:20 | NUR ---
Pain Clinic Assessment: 1. History of Osteoarthritis: NECK History of Rheumatoid Arthritis: DENIES 2. Height: 6 ft. 4 in. 193.0 cm. Weight: 220.8 lb. oz. 100.154 kg. Patient's BMI: 26.9 3. Vital Signs: BP: 130/86 Pulse: 60 Resp: 20 Temp: 02 Sat: 100 ECG Mon: 4. Pain Intensity: 4 5. Fall Risk: Dizziness: N Needs help standing or walking: N Fallen in the last 3 months: N Fall risk comments: having vertigo and seeing pt 6. Patient on Blood Thinner: None 7. History of Hypertension: N 8. Opioid Therapy greater than 6 weeks: N Opiate Contract Signed: 9. Risk Assessment Tool Provided: mod-5 10. Functional Assessment Tool: 11. Recreational Drug Use: Never Drug Type: Tobacco Use: Never Smoker Tobacco Type: Amount or Packs/day: How Many Years: Alcohol Use: Yes Frequency: Weekly Quant: 4
--- NOTE | 2021-04-22 07:54 | HPC ---
[facility] [address] [address] PAIN MANAGEMENT CONSULTATION Name: JOHN TY Room #: REG [facility].#: [id number] Admission: 04/21/21 Attend Phys: Jennifer Maddox Discharge: Date of : 57 Report #: [id number] THIS REPORT FOR: cc: LEOBARDO - Ally family physician/PCP FAM - No family physician/PCP Jennifer Maddox ~ DOC #: [id number] cc: DO Jennifer Vaughan NP DATE OF SERVICE: 04/21/2021 CHIEF COMPLAINT: Neck pain, bilateral upper extremity pain and paresthesias. HISTORY OF PRESENT ILLNESS: This 65-year-old gentleman who returns to the pain clinic today for renewal of medications and to discuss treatment options. The patient was here in December and discussed with Dr. Michael Saldivar the possibility of having an MRI due to his increasing symptoms. His pain is most problematic in his neck and upper back. He also complains of some occipital pressure and dizzy sensation. This is worse with activities and as the day progresses. He reports a pain score of 4/10 today. He believes that the Gralise has been beneficial as well as his medical marijuana that he takes. The patient reports trying to change the times of his Gralise, taking 1 in the morning and 2 at night, but found that it made no difference in his pain, so he has returned to taking 3 tablets at dinner time as previously prescribed. The patient also reports he tried to decrease his medical marijuana, but finds that taking that throughout the day has been beneficial in decreasing his pain. At the last visit with Dr. Michael Saldivar, the patient was ordered MRI of the cervical spine. The patient has yet to schedule this appointment and has not seen a neurosurgeon as he was instructed to do so. He is wondering if there are any other options that did bring up the medication Nucynta and is wondering if that would be beneficial for him in aid in helping him decrease some of his overall pain in his cervical region. ALLERGIES: No known drug allergies. CURRENT LIST OF MEDICATIONS: Marijuana gummies, Viagra, nabumetone and Gralise. PQRS: 1. He has a history of osteoarthritis in his neck. Denies any rheumatoid arthritis. 2. Height is 6 feet 4, weight is 220, BMI is 26. 3. Vital signs; blood pressure 130/86, pulse is 60, respirations 20, oxygen sat is 100. 4. Pain score is 4/10. 5. He does have some dizziness. Does not need help walking [place] [address] PAIN MANAGEMENT CONSULTATION Name: JOHN TY Room #: REG [facility] Leonela#: [id number] Admission: 04/21/21 Attend Phys: Jennifer Maddox Discharge: Date of : 57 Report #: [id number] fallen in the last three months. 6. The patient is not on any blood thinners or medication for hypertension. 7. Opioid therapy, he is not on. 8. Risk assessment is moderate. Functional assessment is 46/70. 9. Recreational drug use, he does use recreational drugs as medical marijuana. He does not smoke. He does drink alcohol and reports at least four drinks a day. According to the prescription monitoring system, the patient is not filling the opioids. He does have a green card for medical marijuana through his provider. The patient states utilizing marijuana from a grower that is not a dispensary. PHYSICAL EXAMINATION: GENERAL: This is a well-developed, well-nourished, well-hydrated 65-year-old gentleman who appears his stated age, rating his pain score today at 4/10. HEENT: Normocephalic, atraumatic. Extraocular muscles are intact. He is wearing a mask. EXTREMITIES: No clubbing, no cyanosis and no edema. MUSCULOSKELETAL: Cervical provocation testing is met with increasing pain with restrictions in motion and lateral extension and flexion. Upper extremity strength is symmetrical at 5/5. Reflexes are symmetrical at the biceps, brachialis and triceps. IMPRESSION: 1. Cervical radiculopathy. 2. Cervical spondylosis with radiculopathy. 3. Displacement of cervical intervertebral disk with radiculopathy. 4. Cervical spinal stenosis. 5. Ongoing vertigo. 6. Chronic intractable pain. PLAN: 1. We discussed treatment options again with the patient today. I encouraged him to follow through with cervical MRI without contrast that Dr. Saldivar ordered in December. The patient has yet to set this up, strongly encouraged him to have this performed since it will show us if he is a surgical candidate or if periodic epidurals may be beneficial in helping reduce some of his pain or we may continue on his medical management. His last MRI required us to do a prior authorization. I encouraged the patient to get this scheduled, so we may help complete that process if need be. He does have radicular symptoms and has ongoing cervical issues that is chronic in nature for several years. The patient has yet to schedule a neurosurgery consult. I encouraged him to hold off on that until after we have the MRI. He will make an appointment with Dr. Michael Saldivar to follow up, so we may review this. 2. The patient questioned if Nucynta, would be beneficial in helping reduce his pain. He has a friend or brother that is on this medication and [address] [place] [address] PAIN MANAGEMENT CONSULTATION Name: JOHN TY Room #: REG [facility].#: [id number] Admission: 04/21/21 Attend Phys: Jennifer Maddox Discharge: Date of : 57 Report #: [id number] feels it is beneficial. I explained to the patient that is an opioid. Since he is currently on medical marijuana, we will not be prescribing opioid medications for him unless he would like to stop utilizing medical marijuana. At this time, the patient states he will continue utilizing his marijuana. I did encourage him to try to decrease his dose. At times, it appears that he is taking it multiple times a day from a grower and he does not know the strength of marijuana he is using. 3. We will renew his nabumetone 500 mg 3 times a day. Sending this electronically to his pharmacy with multiple refills. Reminded the patient that he needs to take this no more than three times a day due to kidney and GI issues that may result in too much anti-inflammatory medications. 4. The patient is in need of his Gralise refill. Unfortunately, he did not bring with him his 90-day prescription carrier. He will call at a later date with this information, so we may send this electronically to that pharmacy. Time spent with the patient in consultation, reviewing pertinent studies and clinical notes and physician reports, physical examination and correlation of findings and medical documentation to determine possible treatment options, 15 minutes. Time spent in preparation for appointment, reviewing prescription, monitoring reports, reviewing previous records and proposed treatment options, reviewing current medications, 4 minutes. Time spent preparing and sending electronic prescriptions with collaborating physician, Dr. Michael Saldivar, documentation of visit and plan of treatment, 5 minutes. Total time spent 25 minutes. MARLEE Bañuelos/KAVITA/TERESA <ELECTRONICALLY SIGNED> By: Jennifer Maddox 04/22/21 0754 1139 [id number] Jennifer Maddox /nt
== END ==
LOC: PAIN 06:49
PROVIDERS: ATTEND Clinical Nurse Specialist Adult Health
DX: M47.22 Other spondylosis with radiculopathy, cervical region (principal); M50.10 Cervical disc disorder with radiculopathy, unspecified cervical region; M48.02 Spinal stenosis, cervical region; R42 Dizziness and giddiness; G89.4 Chronic pain syndrome; Z79.899 Other long term (current) drug therapy; Z79.891 Long term (current) use of opiate analgesic

== ENCOUNTER → 2021-12-01 | Outpatient (CLI) | payer OTHER, MEDICARE ==
[~2021-12-01] VITALS: Ht 193 cm; Wt 102.4 kg
[2021-12-01 09:17] VITALS: BP 126/85
--- NOTE | 2021-12-01 09:32 | NUR ---
[facility] Assessment: 1. History of Osteoarthritis: NECK History of Rheumatoid Arthritis: DENIES 2. Height: 6 ft. 4 in. 193.0 cm. Weight: 225.8 lb. oz. 102.422 kg. Patient's BMI: 27.5 3. Vital Signs: BP: 126/85 Pulse: 70 Resp: 16 Temp: 02 Sat: 100 ECG Mon: 4. Pain Intensity: 5-6 5. Fall Risk: Dizziness: Y Needs help standing or walking: N Fallen in the last 3 months: Y Fall risk comments: having vertigo and seeing pt 6. Patient on Blood Thinner: None 7. History of Hypertension: N 8. Opioid Therapy greater than 6 weeks: N Opiate Contract Signed: 9. Risk Assessment Tool Provided: mod-5 10. Functional Assessment Tool: 11. Recreational Drug Use: Never Drug Type: Tobacco Use: Never Smoker Tobacco Type: Amount or Packs/day: How Many Years: Alcohol Use: Yes Frequency: Quant:
== END ==
LOC: PAIN 08:59
PROVIDERS: ATTEND Clinical Nurse Specialist Adult Health
DX: M47.22 Other spondylosis with radiculopathy, cervical region (principal); M50.10 Cervical disc disorder with radiculopathy, unspecified cervical region; M48.02 Spinal stenosis, cervical region; R42 Dizziness and giddiness; G89.29 Other chronic pain; M79.661 Pain in right lower leg; M79.662 Pain in left lower leg; Z79.899 Other long term (current) drug therapy